=== PATIENT | male | born 1990 | race Caucasian/White ===

== ENCOUNTER 2018-09-28 13:47 | Emergency (ER) | payer OTHER, SELFPAY ==
--- NOTE | 2018-09-28 13:53 | NUR.NOTE ---
Nursing Note: 40 min ago pt cut his thumb on a table saw distal tip 5 cm long minimal bleeding appears to be deep
[2018-09-28 13:55] VITALS: BP 134/66; PULSE 98; RESP 19; TEMP 37; O2SAT 100
--- NOTE | 2018-09-28 15:00 | DI.RAD_ITS ---
SYMPTOMS/DIAGNOSIS: TABLESAW INJURY LEFT THUMB: Three views. No acute fracture or dislocation is seen. There is soft tissue defect at the tip of the thumb consistent with laceration. No radiopaque foreign bodies are present. IMPRESSION: Soft tissue laceration. No radiopaque foreign body or fracture.
--- NOTE | 2018-09-28 15:51 | W.ED.GENAD ---
Discharge Plan Disposition Patient Disposition: HOME Condition: Good Discharge Details Chief Complaint: Laceration Clinical Impression: Laceration of left thumb Primary Care Provider: None,None ED Provider: Lionel Queen Home Meds and New Rx's Prescriptions: New cephalexin [Keflex] 500 mg capsule 500 mg PO QID 7 Days Qty: 28 RF: 0 Discharge Instructions Instructions: Care For Your Stitches (ED), Laceration (ED) Additional Instructions: Your x-ray shows no evidence of fracture, because of the nature of your wound and you cut it we will start you on antibiotics as a precaution. Please take Tylenol and Motrin as needed for pain. please come back in the next 7 to 10 days for reassessment and removal of your sutures. Please leave the dressing on for 24 hours, then you may remove and begin cleaning the wound at least twice a day with soap and water. Continue to apply antibiotic ointment. Do not directly soak the area. Watch for any signs of infection and return if any increasing redness, swelling, pain, drainage. If you notice continued numbness or tingling please return immediately and we will place a referral for orthopedics. Discharge Data Discharge Date/Time-TO BE ENTERED AT DEPARTURE: 09/28/18 16:19 Medical Decision Making This is a pleasant 27-year-old male who is [id number] who presents today for laceration to the distal tip of his left dominant thumb getting it caught in a table saw. Laceration extends from the edge of the nail to the center of the pulp on the volar aspect of the thumb. Two-point discrimination is notably deficient, however sensation is intact. He is able to flex the distal aspect of the thumb but this is limited to pain. X-ray reveals no evidence of significant bony involvement. The area was washed out and scrubbed vigorously with normal saline and chlorhexidine. Following this 7 simple interrupted sutures with 5-0 Vicryl were placed in the left thumb for good wound edge reapproximation. Patient tolerated this well. Repeat exam demonstrates good ability to flex the thumb. However due to the depth of the injury I am concerned for potential mild nerve and ligamentous damage. Additionally because of the dirty nature of the wound initially as well as the close proximity to the bone even in spite of no evidence of radiographic fracture I will start the patient on antibiotics as a precaution. Will be started on Keflex. We discussed red flags which to return, the importance of close follow-up with his PCP for reassessment, as well as return here for removal of the sutures. If The patient continues to demonstrate decreased two-point discrimination on the tip of his thumb, as well as any decrease in strength, I do feel that he will need orthopedic follow-up. I have extensively reviewed the treatment plan and discharge instructions with the patient. I have addressed all patient concerns at this time. The patient was made aware of what symptoms to monitor for that would warrant a return to the emergency department. Discussed the plan with the patient, they demonstrate verbal understanding and agreement with our assessment and plan at this time. LEFT THUMB: Three views. No acute fracture or dislocation is seen. There is soft tissue defect at the tip of the thumb consistent with laceration. No radiopaque foreign bodies are present. IMPRESSION: Soft tissue laceration. No radiopaque foreign body or fracture. Ordered By: Lionel Queen DO HPI General Date/Time Provider Initiated Documentation: 09/28/18 14:13. HPI Narrative: This is a pleasant 27-year-old male who is [id number] who presents today for laceration of his left thumb. Patient was working with a table saw when he cut the tip of his left thumb. He came to the ER immediately for reassessment. Tetanus is been updated in the last 2 years. He certainly denies pain at the site of laceration, he admits to minimal tingling at the tip of his finger. He denies any other complaints at this time. He denies any other site of injury. He denies any IV or illicit drug use, pertinent family history, recent surgical history. Related Data Home Medications Medication Instructions Recorded Confirmed cephalexin [Keflex] 500 mg PO QID 7 Days #28 cap 09/28/18 Previous Rx's Medication Instructions Recorded cephalexin [Keflex] 500 mg PO QID 7 Days #28 cap 09/28/18 Allergies Allergy/AdvReac Type Severity Reaction Status Date / Time No Known Allergies Allergy Unverified 09/28/18 13:56 General Stated Complaint: Laceration ANGELITO: 3 Review of Systems Review of Systems All systems reviewed & are unremarkable except as noted in HPI and below PFSH Social History Smoking/Tobacco Use Status: Current every day Alcohol Intake: current Alcohol Intake frequency: a few times a week Drug use: Daily Substance use type: marijuana Do you feel safe at home: Yes Do you feel safe in your relationship?: Yes Exam Narrative Exam Narrative: 1.Const: Well-nourished, Well-developed, appearing stated age 2.Eyes: PERRL, no conjunctival injection, and symmetrical lids. 3.ENT: Atraumatic external nose and ears. Moist MM. Neck: Symmetric, trachea midline, No thyromegaly. 4.CVS: +S1/S2, No murmurs or gallops. Peripheral pulses 2+ and equal in all extremities. Brisk capillary refill in all extremities. 5.RESP: Unlabored respiratory effort. Clear to auscultation bilaterally. No wheezes rales or rhonchi 6.GI: Soft, Nontender/Nondistended, No hepatosplenomegaly. No guarding or rebound. 7.MSK: Normocephalic/Atraumatic, Extremities w/o deformity or ttp No cyanosis or clubbing, Normal movement of all extremities 8.Skin: Warm, Dry. Notable 1.5 to 2 cm laceration on the distal aspect of his thumb on the pulp side, extending from the tip of the medial aspect of the nail towards the center volar aspect of the thumb. Patient is able to flex the tip of his thumb, however he has mild pain with doing so which slightly limits the examination. Sensation is intact distal to the laceration however I am unable to start any two-point discrimination secondary to a combination of pain and potential injury to the nerve. No evidence of bony involvement. No clear evidence of tendon involvement. Patient demonstrates normal medial and lateral movement of the thumb, extension of the thumb, brisk capillary refill distal to the injury site. No other evidence of bony tenderness. 9.Neuro: vendor management associate II-XII grossly intact. Sensation grossly intact, no focal neurologic deficits. 10.Psych: (AAO) x3. Appropriate mood and affect Course Vital Signs Temperature 37.0 C 09/28/18 13:55 Pulse 98 H 09/28/18 13:55 Respiratory Rate 09/28/18 13:55 Blood Pressure 134/66 09/28/18 13:55 Pulse Oximetry 100 09/28/18 13:55 Temperature 37.0 C 09/28/18 13:55 Temperature Source Tympanic 09/28/18 13:55 Pulse 98 H 09/28/18 13:55 Respiratory Rate 09/28/18 13:55 Respiratory Effort 09/28/18 13:57 Blood Pressure 134/66 09/28/18 13:55 Blood Pressure Position Sitting 09/28/18 13:55 Pulse Oximetry 100 09/28/18 13:55 Oxygen Delivery Method Room Air 09/28/18 13:55 Oxygen Flow Rate 0 09/28/18 13:55 Pain Level 10 09/28/18 13:55 Procedures Laceration Laceration 1: Site: hand Side (If applicable): left Size (cm): 2 Depth: simple, single layer Local Anesthetic: Lidocaine 2% and Bupivicaine 0.5% Pre-repair: wound explored, irrigated extensively and deep structures intact Skin layer closed with: nylon Size (cm): 4-0 Number of sutures: 7 Technique: simple, interrupted
[2018-09-28 16:16] VITALS: BP 134/66; PULSE 98; RESP 19; TEMP 37; O2SAT 100
== END 2018-09-28 16:19 | disposition home or self-care (01) ==
PROVIDERS: Emergency Provider Student in an Organized Health Care Education/Training Program
DX: S61.012A Laceration without foreign body of left thumb without damage to nail, initial encounter (principal); W31.2XXA Contact with powered woodworking and forming machines, initial encounter
CPT/HCPCS: 12001; 99283; 73140

== ENCOUNTER 2020-07-18 11:37 | Emergency (ER) | payer MEDICAID, SELFPAY ==
[2020-07-18 11:43] VITALS: BP 143/76; PULSE 78; RESP 16; TEMP 36.1; O2SAT 95
--- NOTE | 2020-07-18 11:48 | W.ED.GENAD ---
Discharge Plan Disposition Patient Disposition: STILL A PATIENT Condition: Serious Discharge Details Chief Complaint: PsychEval Clinical Impression: Depression with suicidal ideation Primary Care Provider: None,None ED Provider: Rodrigo Lemon Home Meds and New Rx's Prescriptions: No Action No Known Home Meds RF: 0 Medical Decision Making This is a 29-year-old gentleman who reports feeling increased depression, thoughts of harming himself without a specific plan, and find himself more aggressive toward other people but not necessarily homicidal. He reports multiple factors including work, financial situations, recent DUI, difficulty with relationships, etc. He has not done anything to harm himself today. He denies recent illness or trauma, has no acute medical concerns or complaints at this time. Will obtain laboratory values for medical screening, and then obtain a mental health evaluation. In the meantime will order a CPSO and safety plan. Patient agreeable with this plan and has no additional questions or concerns Laboratory values resulted and there are no obvious emergent medical conditions that would inhibit a mental health evaluation. Mental health contacted. Mental health evaluation performed by John, please see her note. The patient will be a voluntary placement for inpatient psychiatric admission. I contacted our warehouse logistics manager regarding bed status, at this time given the limited space, a pediatric admission earlier in the day, it is requested that we board the patient here in the ER and do not admit as an inpatient to our facility. Medical Records Medical records reviewed: Yes I reviewed the patient's medical records. Lab Data Lab results reviewed: Yes I reviewed the patient's lab results. Labs: Laboratory Tests Range/Units 07/18/20 07/18/20 07/18/20 12:12 12:12 12:12 WBC (4.4-10.8) 10^3/uL 5.50 RBC (4.36-5.78) 10^6/uL 4.83 Hgb (13.5-17.5) g/dL 15.7 Hct (40.0-50.0) % 44.0 MCV (80-95) fL 91.1 MCH (27.0-33.0) pg 32.5 MCHC (32.0-36.0) % 35.7 RDW (11.8-14.1) % 11.7 L Plt Count (130-400) 10^3/uL 326 MPV (8.0-11.0) fL 9.4 Immature Gran % 0.4 Neutrophils % 56.7 Lymphocytes % 28.7 Monocytes % 6.0 Eosinophils % 7.3 Basophils % 0.9 Nucleated RBC % % 0 Absolute Neutrophils (1.2-6.7) 10^3/uL 3.12 Absolute Lymphocytes (1.2-3.4) 10^3/uL 1.58 Absolute Monocytes (0.1-0.8) 10^3/uL 0.33 Absolute Eosinophils (0.0-0.7) 10^3/uL 0.40 Absolute Basophils (0.0-0.2) 10^3/uL 0.05 Sodium (136-145) mmol/L 141 Potassium (3.5-5.1) mmol/L 3.9 Chloride (98-107) mmol/L 104 Carbon Dioxide (21.0-32.0) mmol/L 26.0 Anion Gap (3-11) mmol/L 11.0 BUN (7-18) mg/dL 5 L Creatinine (0.70-1.30) mg/dL 1.0 Estimated GFR/1.73 m2 (mL/min/1.73m2) >= 60.00 Glucose (74-106) mg/dL 84 Calcium (8.5-10.1) mg/dL 8.9 Total Bilirubin (0.2-1.0) mg/dL 0.6 AST (15-37) U/L 33 ALT (16-63) U/L 44 Alkaline Phosphatase (46-116) U/L 75 Total Protein (6.4-8.2) g/dL 7.9 Albumin (3.4-5.0) g/dL 4.2 TSH (0.36-3.74) uIU/mL 0.86 Urine Color (Yellow) Urine Clarity (Clear) Urine pH (5-8) Ur Specific [place] (1.005-1.025) Urine Protein (Negative) mg/dL Urine Ketones (Negative) mg/dL Urine Blood (Negative) Urine Nitrite (Negative) Urine Bilirubin (Negative) Urine Urobilinogen (Up TO 0.2) EU/dL Ur Leukocyte Esterase (Negative) Urine RBC (0-2) HPF Urine WBC (0-5) HPF Ur Epithelial Cells (Negative) HPF Urine Crystals (Negative) HPF Urine Bacteria (Negative) HPF Urine Casts (Negative) LPF Urine Mucus (Negative) Ur Culture Indicated? Urine Glucose (Negative) mg/dL Salicylates (<2.8) mg/dL 4.0 Urine Opiates Screen (Negative) Urine Methadone Screen (Negative) Acetaminophen (10-30) ug/mL < 2 Ur Barbiturates Screen (Negative) Ur Tricyclics Screen (Negative) Ur Amphetamines Screen (Negative) U Benzodiazepines Scrn (Negative) Urine Cocaine Screen (Negative) Ur THC Screen (Negative) Ethyl Alcohol (<3) mg/dL 9.0 COVID-19 Source Range/Units 07/18/20 07/18/20 07/18/20 12:12 12:12 14:40 WBC (4.4-10.8) 10^3/uL RBC (4.36-5.78) 10^6/uL Hgb (13.5-17.5) g/dL Hct (40.0-50.0) % MCV (80-95) fL MCH (27.0-33.0) pg MCHC (32.0-36.0) % RDW (11.8-14.1) % Plt Count (130-400) 10^3/uL MPV (8.0-11.0) fL Immature Gran % Neutrophils % Lymphocytes % Monocytes % Eosinophils % Basophils % Nucleated RBC % % Absolute Neutrophils (1.2-6.7) 10^3/uL Absolute Lymphocytes (1.2-3.4) 10^3/uL Absolute Monocytes (0.1-0.8) 10^3/uL Absolute Eosinophils (0.0-0.7) 10^3/uL Absolute Basophils (0.0-0.2) 10^3/uL Sodium (136-145) mmol/L Potassium (3.5-5.1) mmol/L Chloride (98-107) mmol/L Carbon Dioxide (21.0-32.0) mmol/L Anion Gap (3-11) mmol/L BUN (7-18) mg/dL Creatinine (0.70-1.30) mg/dL Estimated GFR/1.73 m2 (mL/min/1.73m2) Glucose (74-106) mg/dL Calcium (8.5-10.1) mg/dL Total Bilirubin (0.2-1.0) mg/dL AST (15-37) U/L ALT (16-63) U/L Alkaline Phosphatase (46-116) U/L Total Protein (6.4-8.2) g/dL Albumin (3.4-5.0) g/dL TSH (0.36-3.74) uIU/mL Urine Color (Yellow) Yellow Urine Clarity (Clear) Clear Urine pH (5-8) 7.5 Ur Specific [place] (1.005-1.025) 1.020 Urine Protein (Negative) mg/dL Trace H Urine Ketones (Negative) mg/dL Negative Urine Blood (Negative) Negative Urine Nitrite (Negative) Negative Urine Bilirubin (Negative) Negative Urine Urobilinogen (Up TO 0.2) EU/dL 0.2 Ur Leukocyte Esterase (Negative) Negative Urine RBC (0-2) HPF 0-2 Urine WBC (0-5) HPF 0-2 Ur Epithelial Cells (Negative) HPF Rare Urine Crystals (Negative) HPF Negative Urine Bacteria (Negative) HPF Rare Urine Casts (Negative) LPF Negative Urine Mucus (Negative) Moderate Ur Culture Indicated? No Urine Glucose (Negative) mg/dL Negative Salicylates (<2.8) mg/dL Urine Opiates Screen (Negative) Negative Urine Methadone Screen (Negative) Negative Acetaminophen (10-30) ug/mL Ur Barbiturates Screen (Negative) Negative Ur Tricyclics Screen (Negative) Negative Ur Amphetamines Screen (Negative) Negative U Benzodiazepines Scrn (Negative) Negative Urine Cocaine Screen (Negative) Positive A Ur THC Screen (Negative) Positive A Ethyl Alcohol (<3) mg/dL COVID-19 Source Nasal/nares HPI General Mode of arrival: ambulatory. Date/Time Provider Initiated Documentation: 07/18/20 11:48. Limitations to Documentation: no limitations. Information obtained by: patient. HPI Narrative: This is a 29-year-old gentleman who presents to the ER for evaluation regarding depression, thoughts of harming himself. He does not have a specific plan. Patient reports that he is having difficulty with relationships at home, difficulty at work, financial problems, and a recent second DUI. He denies any medical concerns or complaints at this time. He reports daily alcohol use although has never had any withdrawal symptoms, daily marijuana use, and smokes cigarettes daily. Patient denies any homicidal ideation but states that he feels aggressive and wants to fight people in general. He denies recent illness or trauma. Denies headache, fever, neck pain, chest pain, shortness of breath abdominal pain, nausea, vomiting, back pain, numbness, tingling, weakness, change in bowel or bladder function. Related Data Home Medications Medication Instructions Recorded Confirmed Unknown [No Known Home Meds] 07/18/20 07/18/20 Allergies Allergy/AdvReac Type Severity Reaction Status Date / Time No Known Allergies Allergy Unverified 07/18/20 11:48 General Stated Complaint: PsychEval ANGELITO: 3 Review of Systems Constitutional Constitutional: Denies fatigue, Denies fever(s), Denies headache(s) and Denies weakness Eyes Eyes: Denies change in vision ENT Ears, Nose, Mouth, and Throat: Denies headache(s) and Denies neck mass Cardiovascular Cardiovascular: Denies chest pain and Denies dyspnea Respiratory Respiratory: Denies cough and Denies dyspnea Gastrointestinal Gastrointestinal: Denies abdominal pain, Denies nausea and Denies vomiting Musculoskeletal Musculoskeletal: Denies back pain Integumentary/Breasts Skin/Breast: Denies rash Neurologic Neurologic: Denies headache(s) and Denies weakness Psychiatric Psychiatric: Reports depression, Reports homicidal ideation and Reports suicidal ideation Endocrine Endocrine: Denies fatigue [facility] Social History Smoking/Tobacco Use Status: Current every day Tobacco Type: cigarettes Smoking risk assessment performed?: Yes Alcohol Intake: current Alcohol Intake frequency: 3 or more drinks per day Drug use: Daily Substance use type: marijuana Details: 6-12 twisted teas/day Do you feel safe at home: Yes Do you feel safe in your relationship?: Yes Exam Const General: cooperative, healthy appearing, comfortable and no acute distress Orientation: alert, awake and oriented x3 HENMT Head: normal to inspection, normocephalic and atraumatic Face and sinus: normal facial exam Mouth: moist mucous membranes Eyes General: appearance normal, both eyes and all related structures Alignment and Position: alignment normal Periorbital: periorbital findings normal Eyelids: eyelids normal Conjunctivae: conjunctivae normal Sclera: sclerae normal Cornea: corneas normal Pupils: PERRL EOM: EOM intact bilaterally Direct ophthalmoscopy: normal light reflex Neck Neck: normal visual inspection, full ROM, trachea midline and supple Resp Effort & Inspection: normal respiratory effort and able to speak in complete sentences Auscultation: clear to auscultation bilaterally Cardio Rate: regular rate Rhythm: regular rhythm GI Palpation: soft and nontender Back/Spine/Pelvis Back: No back tenderness Skin General skin exam: no rashes or lesions noted Neuro General: patient alert, patient awake, patient oriented x3, moves all extremities and no focal motor deficits Cognition: normal cognition Speech: speech normal Gait: normal gait Motor: muscle tone normal throughout Sensory Exam: no sensory deficits noted Extrem General: normal to inspection, full ROM and capillary refill normal Psych Appearance: grossly normal Mental Status: mental status grossly normal Speech and Movement: speech and movement normal Mood: dysthymic mood Affect: sad Attitude: cooperative Thought Process: normal Thought Content: suicidality Insight: fair Judgment: fair Course Vital Signs Vital signs: Vital Signs Temperature 36.1 C L 07/18/20 11:43 Pulse 78 07/18/20 11:43 Respiratory Rate 16 07/18/20 11:43 Blood Pressure 143/76 H 07/18/20 11:43 Pulse Oximetry 95 07/18/20 11:43 Temperature 36.1 C L 07/18/20 11:43 Temperature Source Skin 07/18/20 11:43 Pulse 78 07/18/20 11:43 Respiratory Rate 16 07/18/20 11:43 Respiratory Effort Non-Labored 07/18/20 11:43 Blood Pressure 143/76 H 07/18/20 11:43 Blood Pressure Position Sitting 07/18/20 11:43 Pulse Oximetry 95 07/18/20 11:43 Oxygen Delivery Method Room Air 07/18/20 11:43 Oxygen Flow Rate 0 07/18/20 11:43 Pain Level 2 07/18/20 11:43 Comment 07/18/20 11:43
[2020-07-18 12:30] LABS: Abs Immature Grans 0.02 10^3/uL (0.0-0.06); Absolute Basophil Count 0.05 10^3/uL (0.0-0.2); Absolute Lymphocyte Count 1.58 10^3/uL (1.2-3.4); Absolute Monocyte Count 0.33 10^3/uL (0.1-0.8); Absolute Neutrophil Count 3.12 10^3/uL (1.2-6.7); Basophils % 0.9; Eosinophils % 7.3; HGB 15.7 g/dL (13.5-17.5); Immature Grans % 0.4; Lymphocytes % 28.7; MCH 32.5 pg (27.0-33.0); MCHC 35.7 % (32.0-36.0); MCV 91.1 fL (80-95); MPV 9.4 fL (8.0-11.0); Neutrophils % 56.7; Nucleated RBC 0 %; Platelet Count 326 10^3/uL (130-400); RBC 4.83 10^6/uL (4.36-5.78); RDW 11.7 % (11.8-14.1); RDW-SD 38.7 fL
[2020-07-18 12:39] LABS: Bilirubin Negative (Negative); Blood Negative (Negative); Clarity Clear (Clear); Glucose Negative (Negative); Ketones Negative (Negative); Leukocyte Esterase Negative (Negative); Nitrite Negative (Negative); Urobilinogen 0.2 EU/dL (Up TO 0.2); pH 7.5 (5-8)
[2020-07-18 12:45] LABS: *AMPHETAMINES SCREEN URINE Negative (Negative); *BARBITURATES SCREEN URINE Negative (Negative); *BENZODIAZEPINES SCREEN URINE Negative (Negative); Cannabinoids THC Positive (Negative); Cocaine Screen,Urine Positive (Negative); METHADONE URINE SCREEN Negative (Negative); OPIATES URINE SCREEN Negative (Negative)
[2020-07-18 12:46] LABS: Tricyclic Antidepressants Negative (Negative)
[2020-07-18 12:48] LABS: Acetaminophen < 2 ug/mL (10-30); WBC 0-2 HPF (0-5)
[2020-07-18 12:49] LABS: Bacteria Rare HPF (Negative); C & S Indicated? No; Casts Negative LPF (Negative); Crystals Negative HPF (Negative); Epithelial Cells Rare HPF (Negative); Mucus Moderate (Negative); RBC 0-2 HPF (0-2)
[2020-07-18 12:50] LABS: ALT 44 U/L (16-63); AST 33 U/L (15-37); Albumin 4.2 g/dL (3.4-5.0); Alkaline Phosphatase 75 U/L (46-116); BUN 5 mg/dL (7-18); Bilirubin, Total 0.6 mg/dL (0.2-1.0); Calcium 8.9 mg/dL (8.5-10.1); Chloride 104 mmol/L (98-107); Glucose 84 mg/dL (74-106); Potassium 3.9 mmol/L (3.5-5.1); Sodium 141 mmol/L (136-145); TSH 0.86 uIU/mL (0.36-3.74); Total Protein 7.9 g/dL (6.4-8.2)
[2020-07-18 14:49] LABS: Source Nasal/Nares
--- NOTE | 2020-07-18 16:03 | CMSP_ITS ---
- If Service Date Differs Date of service: 07/18/20 Time of Service: 16:03 Care Management Safety Plan Status: Voluntary Chief Complaint: Marcos presents in the ED for suicidal and homicidal ideation. He reportedly previously attempted suicide by hanging but denies having a plan at this time. Marcos reports a number of stressors and worsening depression. He is evaluated by John, [facility] crisis screener, via zoom and found to meet criteria for a voluntary hospitalization. Referrals are sent to [facility], [facility] [place], [facility], and [facility] [place] for review. There are no beds available at this time, so Marcos will remain at [facility] while [facility] continues to seek a placement for him. VOLUNTARY FOR INPATIENT PSYCHIATRIC STABILIZATION. Patient is appropriate in all interactions since arriving at [facility]; Pt has demonstrated appropriate coping and communication skills, has articulated his or her needs and concerns and is fully engaged during staff interactions. Safety plan has been established with patient, and care team, to adhere to patient goals, identify restrictions based on behavioral status, address nutrition, and determine allowed personal belongings, tools for hygiene and personal care. Determine level of activity including ambulation, level of supervision, visitors, and determine privileges based on behaviors and level of engagement by pt. SAFETY PLAN: 1. Will remain on suicide precautions. In Paper Clothes 2. Will remain in room under direct supervision of one-on-one staff at all times provided by CPSO, FEATHER DRYING MACHINE OPERATOR, PROFESSIONAL BUILDER seed production field supervisor. 3. May have paper cups, plates, finger foods as well as a cardboard spoon with which to eat meals. 4. Follow [facility] Management of the Admitted Behavioral Health Patient policy. 5. Comfort bath system only. 6. No personal belongings 7. Visitors-No visitors at this time 8. Activities: crayons, coloring books, soft cart items, and other activities at RN discretion. 9. Bathroom privileges with escort while in the ED. May use bathroom available in room if moved to Med/Surg. 10. Phone: Phone use at RN discretion. 11. Due to VOLUNTARY status, if patient wishes to leave [facility], staff will contact [facility] Crisis Screener ([phone]) and On-Call Reclamation Furnace Operator ([phone]) as soon as possible. In the event of elopement, notify [facility] Police ([phone]). Patient is currently voluntarily at [facility] and seeking inpatient admission when a bed becomes available. [facility] Frontline Reed Fixer will continue seeking placement. Please contact the Special Tester Reclamation Furnace Operator ([phone]) and [facility] Cri sis Worker ([phone]) for any needed changes in the Safety Plan. Safety plan has been provided to interdepartmental care team.
--- NOTE | 2020-07-18 16:03 | PDOC.CMSAFED ---
- If Service Date Differs Date of service: 07/18/20 Time of Service: 16:03 Care Management Safety Plan Status: Voluntary Chief Complaint: Marcos presents in the ED for suicidal and homicidal ideation. He reportedly previously attempted suicide by hanging but denies having a plan at this time. Marcos reports a number of stressors and worsening depression. He is evaluated by John, [facility] crisis screener, via zoom and found to meet criteria for a voluntary hospitalization. Referrals are sent to [facility], [facility], [facility], and [facility] for review. There are no beds available at this time, so Marcos will remain at [facility] while [facility] continues to seek a placement for him. VOLUNTARY FOR INPATIENT PSYCHIATRIC STABILIZATION. Patient is appropriate in all interactions since arriving at [facility]; Pt has demonstrated appropriate coping and communication skills, has articulated his or her needs and concerns and is fully engaged during staff interactions. Safety plan has been established with patient, and care team, to adhere to patient goals, identify restrictions based on behavioral status, address nutrition, and determine allowed personal belongings, tools for hygiene and personal care. Determine level of activity including ambulation, level of supervision, visitors, and determine privileges based on behaviors and level of engagement by pt. SAFETY PLAN: 1. Will remain on suicide precautions. In Paper Clothes 2. Will remain in room under direct supervision of one-on-one staff at all times provided by CPSO, CAPACITOR TESTER, DAIRY TESTER restaurant area director. 3. May have paper cups, plates, finger foods as well as a cardboard spoon with which to eat meals. 4. Follow [facility] Management of the Admitted Behavioral Health Patient policy. 5. Comfort bath system only. 6. No personal belongings 7. Visitors-No visitors at this time 8. Activities: crayons, coloring books, soft cart items, and other activities at RN discretion. 9. Bathroom privileges with escort while in the ED. May use bathroom available in room if moved to Med/Surg. 10. Phone: Phone use at RN discretion. 11. Due to VOLUNTARY status, if patient wishes to leave [facility], staff will contact [facility] Crisis Screener ([phone]) and On-Call Mold Construction Supervisor ([phone]) as soon as possible. In the event of elopement, notify [facility] Police ([phone]). Patient is currently voluntarily at [facility] and seeking inpatient admission when a bed becomes available. [facility] Frontline Developmental Education Instructor will continue seeking placement. Please contact the Art Objects Repairer Mold Construction Supervisor ([phone]) and [facility] Developmental Education Instructor ([phone]) for any needed changes in the Safety Plan. Safety plan has been provided to interdepartmental care team.
--- NOTE | 2020-07-18 16:26 | PDOC.MHCN_ITS ---
Date of service: 07/18/20 Time of Service: 13:45 Mental Health Crisis Note Presenting Issue How did you arrive at the ED and why did you come: Client stated he walked to the ED. Client reported feeling more depressed than usual. Precipitating Factors Client endorsed SI as well as HI. Client reported having thought of harming others but not towards any one in particular. Disposition BEHAVIOR: Client presented as cooperative, guarded and impulsive. Client also presented as fatigued. EYE CONTACT: Client maintained appropriate eye contact. MOOD: Client presented wit depressed mood. AFFECT: Client presented with restricted affect APPETITE: Client reported having intervals of poor appetite which leads to him starving himself as a way to self-harm. Client also reported times where overeats due to feeling depressed, stressed or bored. SLEEP(trouble falling/staying asleep: Client reported difficulty falling and staying asleep. Plan Client is has agreed to remain on voluntary status. Client will await placement at [facility] for in-patient psychiatric treatment. Referrals have been sent to [facility], [facility], [facility] and and they are pending review as well as bed availability. Signature Clinician's Name/Title: Adry Mcghee / Emergency Services Clinician.
[2020-07-18] MEDS: LORazepam 1 MG TAB PO (19:51)
[2020-07-18 20:29] LABS: COVID-19 PCR Negative (Negative)
[2020-07-19 05:27] VITALS: TEMP 37.1
[2020-07-19 10:08] VITALS: BP 142/73; PULSE 48; RESP 16; TEMP 36.8; O2SAT 94
--- NOTE | 2020-07-19 10:22 | NUR.NOTE ---
Nursing Note: Left a message at [facility] for Marce, who called earlier, that the patient is going to be transferred to [facility]. Donna Conde
--- NOTE | 2020-07-19 12:04 | PDOC.ERCMPRO ---
- If Service Date Differs Date of service: 07/19/20 Time of Service: 12:04 Care Management Progress Note S/O: Marcos has been calm and cooperative since his arrival at [facility]. Today, he is laying on the bed when CM comes to meet with him. He easily engages in conversation. Affect is flat and mood depressed. Breonna from [facility] spoke with Marcos on the telephone this morning to assist in reinstating his Medicaid. Marcos is aware he is being transferred to [facility] this afternoon around 1:00 pm. He states he has been at the [facility] in the past and has no questions or concerns, as he knows what to expect. A: Marcos is a 29 year old male who presents to the ED on 07/18/2020 for suicidal and homicidal ideation. P: [facility] has accepted Marcos for a voluntary placement. [facility] are providing transport to the [facility].
--- NOTE | 2020-07-19 14:04 | NUR.NOTE ---
patient picked up for transport by . told patient that he may change into his own clothes. rn aware. Nursing Note:
== END 2020-07-19 13:59 | disposition short-term general hospital (02) ==
PROVIDERS: Physician Assistant; Emergency Provider Emergency Medicine
DX: F41.8 Other specified anxiety disorders (principal); R45.851 Suicidal ideations; Z03.818 Encounter for observation for suspected exposure to other biological agents ruled out
CPT/HCPCS: 36415; 80053; 80307; 87635; 99285; 80320; 80329; 81003; 81015; 84443; 85025; 99283

== ENCOUNTER 2020-08-21 17:06 | Emergency (ER) | payer MEDICAID, SELFPAY ==
[2020-08-21 17:22] VITALS: BP 139/82; PULSE 98; RESP 15; TEMP 36.9; O2SAT 96
--- NOTE | 2020-08-21 17:27 | W.ED.GENAD ---
Discharge Plan Disposition Patient Disposition: HOME Condition: Stable Discharge Details Clinical Impression: Depression with suicidal ideation Primary Care Provider: None,None ED Provider: Cheli Urena Home Meds and New Rx's Prescriptions: Continued trazodone 50 mg tablet 50 mg PO HS RF: 0 olanzapine 10 mg tablet 10 mg PO HS RF: 0 fluoxetine 20 mg capsule 20 mg PO DAILY RF: 0 Discharge Instructions Instructions: Depression (ED), Help Prevent Suicide (ED) Additional Instructions: Safety plan has been set up. Plan is for you to stay with your mother while you are still having increased depression. Mom will be in charge of her medications and ensure you get the as they are prescribed. No firearms in the house. You will need close follow-up with primary care, please call tomorrow morning to schedule appointment tomorrow. Please keep upcoming appointment with diffuse counselor. Please continue to try to abstain from alcohol. Mental health provider will be in touch with you at least daily and continue to have frequent check ins. If you develop thoughts of self-harm, suicidal ideation or other new/worsening symptoms please seek care urgently once again. May call mental health at anytime [phone]. Please also stay in close contact with your case management social worker. Referrals: Taylor Crowley [ NON-[facility] STAFF PHYSICIAN] - Discharge Data Discharge Date/Time-TO BE ENTERED AT DEPARTURE: 08/21/20 20:12 Medical Decision Making Patient pleasant 29-year-old male with history of depression presenting today with chief complaint of suicidal ideations. He reports that his depression has been increasing recently. He was discharged from [facility] 3 weeks ago. Have been clean for the first 2 days but did begin drinking alcohol again. He reports that he has a multitude of social stressors including his current living situation, being evicted from his home. He finds himself being very short with others and has begun drinking to try and cope with this. Patient reports that 2 days ago he took extra Zyprexa in an effort to go to sleep. He felt that this is a better option than arguing with the levels in his life. He is adamant that this is not a suicide attempt but rather an attempt to be able to get some sleep as he has had difficulty doing so. Patient has not yet established with a local counselor or primary care. However, he does report that he is in touch with a acid recovery operator and has an appointment with them coming up. Endorses marijuana use. States that he had 1 beer prior to arrival. On exam, patient appears anxious and sad. I do not see any evidence of recent cutting or self-inflicted harm. Patient is clinically sober and appropriate. Plan to consult with mental health. Patient does have a sitter and has changed to blue scrubs. Patient was evaluated by mental health. He continues to reiterate concern for his overall mental health but want to get help. She reports to her as well that he does not want to commit suicide but rather, wants to get help as he is concerned about his increasing depression. Mental health provider and the patient discussed disposition options. They feel that at this time, the best plan is for him to be discharged home with his mother. He will stay with his mother while he continues his treatment. He does have upcoming appointment with a substance abuse counselor. Mental health provider plans to talk with the patient at least once a day. He will also follow-up with primary care tomorrow, mom will help arrange for close follow-up. Mom will be in charge of all of his medications and will giving these accordingly. They will ensure no firearms in the house. Strict return precautions were discussed. Patient agrees to safety plan. He does have forward thinking and seems very invested in this plan. All of their questions and concerns were addressed and patient and his mother in agreement with this plan. Contact #4 mental health was given to patient he is aware that he may contact them at any time. HPI General Mode of arrival: ambulatory. Date/Time Provider Initiated Documentation: 08/21/20 17:27. Limitations to Documentation: no limitations. Information obtained by: patient and RN notes reviewed. History of Present Illness 29 year old M presents to the emergency department with the chief complaint of suicidal ideation, described as severe and similar to prior episodes, Patient started experiencing this day(s) and it has been constant. No relieving factors improve symptom(s), No exacerbating factors reported . Patient notes no other symptoms.. Patient did receive the following treatments prior to arrival, none Related Data Home Medications Medication Instructions Recorded Confirmed fluoxetine 20 mg PO DAILY 08/21/20 08/21/20 olanzapine 10 mg PO HS 08/21/20 08/21/20 trazodone 50 mg PO HS 08/21/20 08/21/20 Allergies Allergy/AdvReac Type Severity Reaction Status Date / Time No Known Allergies Allergy Unverified 08/21/20 17:32 General ANGELITO: 3 Review of Systems Constitutional Constitutional: Reports as per HPI, Denies chills, Denies fatigue, Denies fever(s), Denies headache(s) and Denies weakness ENT Ears, Nose, Mouth, and Throat: Denies headache(s) Cardiovascular Cardiovascular: Reports as per HPI, Denies chest pain, Denies lightheadedness, Denies dyspnea and Denies dyspnea on exertion Respiratory Respiratory: Reports as per HPI, Denies cough, Denies dyspnea and Denies dyspnea on exertion Genitourinary Genitourinary: Denies system reviewed and no additional complaints, except as documented (denies any change in urinary habits) Musculoskeletal Musculoskeletal: Denies abnormal gait Integumentary/Breasts Skin/Breast: Reports as per HPI and Denies rash Neurologic Neurologic: Denies abnormal movements, Denies abnormal speech, Denies abnormal gait, Denies headache(s), Denies paresthesias and Denies weakness Psychiatric Psychiatric: Reports as per HPI, Reports abnormal sleep pattern, Reports depression, Reports hopelessness, Reports mood swings, Denies visual hallucinations, Denies homicidal ideation and Reports suicidal ideation Endocrine Endocrine: Denies fatigue [facility] Social History Smoking/Tobacco Use Status: Current every day Tobacco Type: cigarettes Smoking risk assessment performed?: Yes Alcohol Intake: current Alcohol Intake frequency: 3 or more drinks per day Alcohol type: other Drug use: Daily Substance use type: marijuana Details: 6-12 twisted teas/day Do you feel safe at home: No Do you feel safe in your relationship?: No Exam Const General: cooperative, healthy appearing, comfortable, no acute distress, well developed, well groomed and anxious (sad and anxious, crying) Nutritional Appearance: average body habitus and well nourished Orientation: alert and awake Eyes General: appearance normal, both eyes and all related structures Resp Effort & Inspection: normal respiratory effort, able to speak in complete sentences and no respiratory distress Auscultation: clear to auscultation bilaterally, no rales, no rhonchi and no wheezes Cardio Rate: regular rate Rhythm: regular rhythm Heart Sounds: S1 normal and S2 normal Skin General skin exam: no rashes or lesions noted Trauma: no lacerations or abrasions Neuro General: patient alert and patient awake Cognition: normal cognition Speech: speech normal Gait: normal gait Psych Appearance: grossly normal and well kempt Mental Status: mental status grossly normal Speech and Movement: speech and movement normal Mood: anxious mood Affect: sad Attitude: cooperative Thought Process: normal Thought Content: suicidality Insight: limited Judgment: limited
[2020-08-21 17:57] LABS: Abs Immature Grans 0.04 10^3/uL (0.0-0.06); Absolute Eosinophil Count 0.59 10^3/uL (0.0-0.7); Absolute Lymphocyte Count 2.52 10^3/uL (1.2-3.4); Absolute Monocyte Count 0.68 10^3/uL (0.1-0.8); Absolute Neutrophil Count 6.55 10^3/uL (1.2-6.7); Eosinophils % 5.6; HCT 38.9 % (40.0-50.0); HGB 13.9 g/dL (13.5-17.5); Immature Grans % 0.4; MCH 32.6 pg (27.0-33.0); MCHC 35.7 % (32.0-36.0); MCV 91.3 fL (80-95); MPV 9.5 fL (8.0-11.0); Monocytes % 6.5; Neutrophils % 62.5; Nucleated RBC 0 %; Platelet Count 252 10^3/uL (130-400); RBC 4.26 10^6/uL (4.36-5.78); RDW 12.1 % (11.8-14.1); RDW-SD 39.8 fL; WBC 10.48 10^3/uL (4.4-10.8)
[2020-08-21 18:17] LABS: Bilirubin Negative (Negative); Blood Negative (Negative); Clarity Clear (Clear); Glucose Negative (Negative); Ketones Negative (Negative); Leukocyte Esterase Negative (Negative); Nitrite Negative (Negative); Urobilinogen 0.2 EU/dL (Up TO 0.2); pH 6.5 (5-8)
[2020-08-21 18:18] LABS: ALT 75 U/L (16-63); AST 61 U/L (15-37); Alkaline Phosphatase 87 U/L (46-116); Anion Gap 12.7 mmol/L (3-11); BUN 9 mg/dL (7-18); Bilirubin, Total 0.5 mg/dL (0.2-1.0); CO2 26.3 mmol/L (21.0-32.0); Calcium 8.5 mg/dL (8.5-10.1); Chloride 104 mmol/L (98-107); ETHANOL BLOOD 121.4 mg/dL (<3); Glucose 87 mg/dL (74-106); Potassium 3.1 mmol/L (3.5-5.1); Sodium 143 mmol/L (136-145); TSH (W/Ref FT4) 1.04 uIU/mL (0.36-3.74); Total Protein 7.6 g/dL (6.4-8.2)
[2020-08-21 18:32] LABS: Salicylate 3.5 mg/dL (<2.8)
[2020-08-21 18:32] LABS: *AMPHETAMINES SCREEN URINE Negative (Negative); *BARBITURATES SCREEN URINE Negative (Negative); *BENZODIAZEPINES SCREEN URINE Negative (Negative); Cannabinoids THC Negative (Negative); Cocaine Screen,Urine Negative (Negative); METHADONE URINE SCREEN Negative (Negative); OPIATES URINE SCREEN Negative (Negative)
[2020-08-21 18:33] LABS: Acetaminophen < 2 ug/mL (10-30)
[2020-08-21 18:43] LABS: Tricyclic Antidepressants Negative (Negative)
--- NOTE | 2020-08-21 20:08 | PDOC.MHCN_ITS ---
Date of service: 08/21/20 Time of Service: 20:09 Mental Health Crisis Note Presenting Issue How did you arrive at the ED and why did you come: Client arrived to the ED after having a conversation with his family independence case manager. Client reported he took 10 of his 10mg Zyprexa on friday (08/19/2020) which is more than the recommended dosage prescribed to him by his PCP. Client stated he took them because he just wanted to go to sleep. Client was advised to come to the ED to get cleared medically and also to get assessed. Precipitating Factors Client denied SI/HI at this time during this assessment. Disposition BEHAVIOR: Client was cooperative but endorsed feeling stressed with current home environment and also presented as guarded. Client presented as cooperative, cordial and calm during this assessment. EYE CONTACT: Client maintained appropriate eye contact during this assessment MOOD: Client presented with depressed mood but expressed feeling hopeful that he can get some help with the support of his family and treatment team AFFECT: Client presented with blunted affect APPETITE: Client denied any eating disturbance at this time SLEEP(trouble falling/staying asleep: Client denied any sleeping disturbance at this time Plan Client is connected to a PCP (DR. Krupa Farooq) as well as a Platform Stapler (Huyen Bellamy, [facility]). Client will be discharged to his mother who he will be staying with till he gets situated as he reported he may be homeless at this time. Client will have his medications administered to him by his mother till he get to such a point when he is able to administer his own medications. Client would be followed by his PCP as well as family independence case manager and he has agreed to make an appointment tomorrow to see his PCP. Client reported he is scheduled to see a Substance Abuse Counselor through [facility] but it is unclear when that appointment will be. Both client and his mother are agreeable to this safety plan and have been encouraged to reach out to [facility] ([phone]) if needed. Client has also agreed to do daily check-ins with [facility] from 08/22/2020 to 08/25/2020. Client would be doing his first check-in tomorrow at 3 p.m. Signature Clinician's Name/Title: Adry Mcghee / ALEXANDRE Clinician
== END 2020-08-21 20:12 | disposition home or self-care (01) ==
PROVIDERS: Emergency Provider Physician Assistant
DX: F32.9 Major depressive disorder, single episode, unspecified (principal); R45.851 Suicidal ideations; F10.120 Alcohol abuse with intoxication, uncomplicated; Y90.6 Blood alcohol level of 120-199 mg/100 ml
CPT/HCPCS: 36415; 80053; 80307; 99284; 80320; 80329; 81003; 84443; 85025

== ENCOUNTER 2020-09-25 13:19 | Observation (INO) | payer MEDICAID, SELFPAY ==
[2020-09-25 13:54] VITALS: BP 129/73; PULSE 72; RESP 16; TEMP 36.9
--- NOTE | 2020-09-25 14:00 | ED.GENADUL_ITS ---
Discharge Plan Discharge Details Chief Complaint: PsychEval Admit Date/Time: 09/25/20 17:36 Admit Provider: Gurjit Up Attending Provider: Gurjit Up Primary Care Provider: None,None ED Provider: Annette Cordova Medical Decision Making 29-year-old male presents to the ED chief complaint of suicidal ideation. Patient states he wants to go into the would and starve to or overdose patient reports that he called the crisis hotline number prior to arrival and was instructed to present here. He states that he does not have a counselor he was scheduled on September 14 but missed this appointment. He denies doing anything over the last 24 to 48 hours to hurt himself. He states he has missed some of his regular scheduled medication for the last couple of days. He did take an olanzapine prior to arrival today. He does endorse smoking cigarettes, marijuana and a sixpack of alcohol prior to arrival today. He also reports that he fell down a number of stairs prior to arrival denies any loss of consciousness or hitting his head. He does have a superficial abrasion noted to his right elbow bleeding is controlled at this time. He denies any other injuries Patient placed in the room and - nurses station, CPS so ordered, screening labs and UDS ordered at this time. Patient placed in paper scrubs by medical staff assistant and belongings collected. Patient is calm and cooperative at this time. CBC, CMP, UDS, UA, Tylenol, Salicylate, and TSH ordered. Patient is medically cleared at this time, CBC CMP within normal limits, THC positive, ethyl alcohol level is 42.2 Mayelin with [facility] human services at bedside for patient evaluation. At this time she is recommending placement for psychiatric admission patient is voluntary at this time. 1709: Spoke with Dr. Up with Hospitalist, regarding admission for voluntary psych status and Suicidal ideation. Spoke with Andra with Care management, safety plan in place, no phone, no visitors, no shower until tomorrow. HPI General Mode of arrival: ambulatory . Date/Time Provider Initiated Documentation: 09/25/20 13:27 . Limitations to Documentation: no limitations . Information obtained by: patient . HPI Narrative: 29-year-old male presents to the ED chief complaint of suicidal ideation. Patient states he wants to go into the would and starve to or overdose patient reports that he called the crisis hotline number prior to arrival and was instructed to present here. He states that he does not have a counselor he was scheduled on September 14 but missed this appointment. He denies doing anything over the last 24 to 48 hours to hurt himself. He states he has missed some of his regular scheduled medication for the last couple of days. He did take an olanzapine prior to arrival today. He does endorse smoking cigarettes, marijuana and a sixpack of alcohol prior to arrival today. He also reports that he fell down a number of stairs prior to arrival denies any loss of consciousness or hitting his head. He does have a superficial abrasion noted to his right elbow bleeding is controlled at this time. He denies any other injuries. Related Data Home Medications Medication Instructions Recorded Confirmed fluoxetine 20 mg PO DAILY 08/21/20 09/25/20 olanzapine 10 mg PO HS 08/21/20 09/25/20 trazodone 50 mg PO HS 08/21/20 09/25/20 Allergies Allergy/AdvReac Type Severity Reaction Status Date / Time No Known Allergies Allergy Unverified 09/25/20 14:00 General Stated Complaint: PsychEval ANGELITO: 2 Review of Systems Narrative: Constitutional: Negative for weight loss, alert and oriented, somewhat disheveled normal body habitus, appears comfortable. HEENT: Denies headaches, blurry vision, nasal discharge, sore throat, trouble swallowing. Chest: Denies chest pain, palpitations, irregular rhythm, hypertension. Respiratory: Denies Shortness of breath, cough, hemoptysis. GI: Denies abdominal pain, nausea, vomiting, diarrhea, constipation. : Denies dysuria, hematuria, flank pain, rectal bleeding. Neuro: Denies dizziness, blurry vision, weakness, syncope, headache or facial numbness. Hematologic: Denies easy bruising, intolerance to heat or cold, hair loss. Psychiatric Psychiatric: Reports as per HPI, Reports depression, Denies homicidal ideation and Reports suicidal ideation [facility] Social History Smoking/Tobacco Use Status: Current every day Tobacco Type: cigarettes Smoking risk assessment performed?: Yes Alcohol Intake: current Alcohol Intake frequency: 3 or more drinks per day Alcohol type: other Drug use: Daily Substance use type: marijuana Details: 6-12 twisted teas/day Do you feel safe at home: No Do you feel safe in your relationship?: No Exam Narrative Exam Narrative: Constitutional: Alert and oriented x3. Appears stated age. Normal body habitus. Head: Normocephalic, no trauma. Eyes: Pupils PERRLA, Red reflex noted, EOM's intact. Eyelids symmetrical without lesions, discharge, or swelling. ENT: Bilateral TM's WNL, External ear normal to inspection, no mastoid TTP, swelling, or erythema, Nasal turbinates WNL, no nasal discharge. Normal dentition, Posterior pharynx WNL, no exudate. Chest: RRR, Normal S1, S2, distal pulses intact. Resp: Lungs clear to auscultation bilaterally, no wheezes, rales, or rhonchi. Musculoskeletal: Normal gait, 5/5 strength to all four extremities. Small superficial abrasion noted to his right elbow. Skin: No suspicious rashes or lesions. Capillary refill less than 2 sec. Neurologic: Cranial nerves II-XII intact. Alert and oriented x 3. DTR's intact. Hematologic/Lymphatic: No ecchymosis, no lymphadenopathy. Psych Appearance: disheveled Speech and Movement: slowed movement Mood: labile mood Affect: sad Attitude: cooperative Thought Process: normal Thought Content: suicidality Insight: poor Judgment: poor Course Vital Signs Vital signs: Vital Signs Temperature 36.9 C 09/25/20 13:54 Pulse 72 09/25/20 13:54 Respiratory Rate 16 09/25/20 13:54 Blood Pressure 129/73 09/25/20 13:54 Temperature 36.9 C 09/25/20 13:54 Temperature Source Skin 09/25/20 13:54 Pulse 72 09/25/20 13:54 Respiratory Rate 16 09/25/20 13:54 Respiratory Effort 09/25/20 13:59 Blood Pressure 129/73 09/25/20 13:54 Blood Pressure Position Sitting 09/25/20 13:54
[2020-09-25 14:13] LABS: Bilirubin Negative (Negative); Blood Negative (Negative); Clarity Clear (Clear); Glucose Negative (Negative); Ketones Negative (Negative); Leukocyte Esterase Negative (Negative); Nitrite Negative (Negative); Urobilinogen 0.2 EU/dL (Up TO 0.2); pH 6.5 (5-8)
[2020-09-25 14:23] LABS: *AMPHETAMINES SCREEN URINE Negative (Negative); *BARBITURATES SCREEN URINE Negative (Negative); *BENZODIAZEPINES SCREEN URINE Negative (Negative); Cannabinoids THC Positive (Negative); Cocaine Screen,Urine Negative (Negative); METHADONE URINE SCREEN Negative (Negative); OPIATES URINE SCREEN Negative (Negative)
[2020-09-25 14:24] LABS: Abs Immature Grans 0.01 10^3/uL (0.0-0.06); Absolute Basophil Count 0.09 10^3/uL (0.0-0.2); Absolute Eosinophil Count 0.34 10^3/uL (0.0-0.7); Absolute Lymphocyte Count 2.77 10^3/uL (1.2-3.4); Absolute Monocyte Count 0.34 10^3/uL (0.1-0.8); Basophils % 1.4; Eosinophils % 5.3; HCT 40.5 % (40.0-50.0); HGB 14.3 g/dL (13.5-17.5); Immature Grans % 0.2; Lymphocytes % 42.9; MCH 32.3 pg (27.0-33.0); MCHC 35.3 % (32.0-36.0); MCV 91.4 fL (80-95); MPV 9.5 fL (8.0-11.0); Monocytes % 5.3; Neutrophils % 44.9; Nucleated RBC 0 %; Platelet Count 282 10^3/uL (130-400); RBC 4.43 10^6/uL (4.36-5.78); RDW 12.1 % (11.8-14.1); RDW-SD 40.4 fL; WBC 6.45 10^3/uL (4.4-10.8)
[2020-09-25 14:24] LABS: Tricyclic Antidepressants Negative (Negative)
[2020-09-25 14:49] LABS: Anion Gap 12.9 mmol/L (3-11); BUN 7 mg/dL (7-18); CO2 25.1 mmol/L (21.0-32.0); CREATININE 1.2 mg/dL (0.70-1.30); Calcium 8.7 mg/dL (8.5-10.1); Chloride 106 mmol/L (98-107); ETHANOL BLOOD 42.2 mg/dL (<3); Glucose 88 mg/dL (74-106); Potassium 3.8 mmol/L (3.5-5.1); Sodium 144 mmol/L (136-145); TSH (W/Ref FT4) 0.45 uIU/mL (0.36-3.74)
[2020-09-25 15:02] LABS: Acetaminophen < 2 ug/mL (10-30); Salicylate 3.2 mg/dL (<2.8)
--- NOTE | 2020-09-25 16:50 | PDOC.MHCN ---
Date of service: 09/25/20 Time of Service: 16:50 Mental Health Crisis Note Presenting Issue How did you arrive at the ED and why did you come: Pt arrived to the ER via himself. He is seeking a voluntary admission due to SI. He denied HI. Precipitating Factors Pt admits to persistent thoughts of SI with a plan to go into the jimenez and starving himself or overdosing on his medications. He reported that he has collected pills as well as missed doses to be able to do this. There are no signs of delusions. Disposition BEHAVIOR: Pt is cooperative and engaged. He reported that he has court on Friday for his third DUI resulting in him sleeping in a parking lot with his child in the back seat. He reported that DCF is also coming to his home at 3pm today also relating to this DUI charge. Pt is not being a behavior problem and is soft spoken and respectful. EYE CONTACT: Eye contact is good. MOOD: Pt described his mood as irritable and manic and he believes he has bipolar disorder like his family. He presents as depressed. AFFECT: Pt's affect appeared normal although he is wearing a mask which makes it difficult to read. APPETITE: Pt reported a decreased appetite. SLEEP(trouble falling/staying asleep: Pt reported that his appetite is alright and takes trazadone for this. Plan No hospital available today. Referrals have been made to [facility], [facility], [facility] and [facility]. [facility] do not have any available beds. A huddle was had with the Region Manager as the hospital is flooded with other Pt's and a care plan was put in place. Signature Clinician's Name/Title: Mayelin James MS, [facility] Emergency Services Clinician
--- NOTE | 2020-09-25 17:10 | PDOC.CMSAFED ---
- If Service Date Differs Date of service: 09/25/20 Time of Service: 17:10 Care Management Safety Plan Status: Voluntary - Reason for Wait Reason for Wait: Inpatient Admission Chief Complaint: Marcos is a 29 year old male who presents in the ED for suicidal ideation with a plan of going into the jimenez and either starving himself or taking an overdose of medication. He reportedly has had 2 previous suicide attempts by strangling/hanging, with the last attempt being approximately 2 months ago. Marcos reports drinking a 12-pack of beer daily and smoking THC 4 times a day. Marcos is seeking a voluntary psychiatric placement. He was evaluated by Natalie this afternoon and was found to meet criteria for a voluntary placement. Referrals are faxed to [facility], [facility], [facility], and [facility] for review. There are no available beds today. VOLUNTARY FOR INPATIENT PSYCHIATRIC STABILIZATION. Patient is appropriate in all interactions since arriving at [facility]; Pt has demonstrated appropriate coping and communication skills, has articulated his or her needs and concerns and is fully engaged during staff interactions. A huddle cannot be held due to the volume in the ED. After discussing the safety plan individually with Lilli, nursing tree trimming supervisor, Annette, ED provider, Kimberley, charge nurse, and BERNADETTE Dick, the following plan is approved: Safety plan has been established with patient, and care team, to adhere to patient goals, identify restrictions based on behavioral status, address nutrition, and determine allowed personal belongings, tools for hygiene and personal care. Determine level of activity including ambulation, level of supervision, visitors, and determine privileges based on behaviors and level of engagement by pt. SAFETY PLAN: 1. Will remain on suicide precautions. In Paper Clothes 2. Will remain in room under direct supervision of one-on-one staff at all times provided by CPSO, TONY, TIRE SPOTTER learning center coordinator. 3. May have paper cups, plates, finger foods as well as a cardboard spoon with which to eat meals. 4. Follow [facility] Management of the Admitted Behavioral Health Patient policy. 5. Comfort bath system only. 6. No personal belongings 7. Visitors-No visitors at this time 8. Activities: Soft cart items, music tablet, television if available, and other activities at RN discretion. 9. Bathroom privileges with escort in the ED. May use bathroom available in room without limitation on Med/Surg. 10. Phone: No phone privileges at this time. 11. Due to VOLUNTARY status, if patient wishes to leave [facility], staff will contact [facility] Crisis Screener ([phone]) and On-Call Warehouse Material Handler ([phone]) as soon as possible. In the event of elopement, notify [facility] Police ([phone]). Patient is currently voluntarily at [facility] and seeking inpatient admission when a bed becomes available. [facility] Frontline Stonecutter Assistant will continue seeking placement. Please contact the Manager Sales And Marketing Warehouse Material Handler ([phone]) and [facility] Stonecutter Assistant ([phone]) for any needed changes in the Safety Plan. Safety plan has been provided to interdepartmental care team.
--- NOTE | 2020-09-25 17:18 | HPE_ITS ---
Date of service: 09/25/20 Time of Service: 17:18 Assessment and Plan Assessment and plan (1) Depression with suicidal ideation: Status: Acute Assessment and plan: Depression/SI: will monitor pending transfer to psych facility. No confirmation of meds at present, will defer to psych EtOH; reports 12 pack/day, has never stopped so does not know of any w/d issues: will place on scheduled Librium and CIWA, banana bag History of Present Illness History of Present Illness Chief Complaint: SI Narrative: 29 male with lonh h/o depression, reports chronically suicidal, worse recently. Does not identify any specific precipitant for me. In ER medically cleared -- other than EtOH intoxication -- and is admitted voluntarily pending transfer to psych facility. Review of Systems All systems reviewed & are unremarkable except as noted in HPI and below PFSH Social History Smoking/Tobacco Use Status: Current every day Tobacco Type: cigarettes Smoking risk assessment performed?: Yes Alcohol Intake: current Alcohol Intake frequency: 3 or more drinks per day A lcohol type: other Drug use: Daily Substance use type: marijuana Details: 6-12 twisted teas/day Do you feel safe at home: No Do you feel safe in your relationship?: No Meds Allergies and Home Medications Allergies Allergy/AdvReac Type Severity Reaction Status Date / Time No Known Allergies Allergy Unverified 09/25/20 14:00 Home Medications Medication Instructions Recorded Confirmed Type fluoxetine 20 mg PO DAILY 08/21/20 08/21/20 History olanzapine 10 mg PO HS 08/21/20 08/21/20 History trazodone 50 mg PO HS 08/21/20 08/21/20 History Exam Narrative Exam Narrative: 129/73, 72, 36.9, 16. HEENT atraumatic; neck supple; lungs clear; heart RRR; abdomen soft and NT; extremities w/o edema; neuro Ox3, calm, moves all 4s Results Labs Result diagrams: 09/25/20 14:18 09/25/20 14:18 Labs: Laboratory Results - last 24 hr 09/25/20 09/25/20 09/25/20 13:56 13:56 14:18 WBC RBC Hgb Hct MCV MCH MCHC RDW Plt Count MPV Immature Gran % Neutrophils % Lymphocytes % Monocytes % Eosinophils % Basophils % Nucleated RBC % Absolute Neutrophils Absolute Lymphocytes Absolute Monocytes Absolute Eosinophils Absolute Basophils Sodium 144 Potassium 3.8 Chloride 106 Carbon Dioxide 25.1 Anion Gap 12.9 H BUN 7 Creatinine 1.2 Estimated GFR/1.73 m2 >= 60.00 Glucose 88 Calcium 8.7 TSH 0.45 Urine Color Yellow Urine Clarity Clear Urine pH 6.5 Ur Specific [place] 1.010 Urine Protein Negative Urine Ketones Negative Urine Blood Negative Urine Nitrite Negative Urine Bilirubin Negative Urine Urobilinogen 0.2 Ur Leukocyte Esterase Negative Urine Glucose Negative Salicylates Urine Opiates Screen Negative Urine Methadone Screen Negative Acetaminophen Ur Barbiturates Screen Negative Ur Tricyclics Screen Negative Ur Amphetamines Screen Negative U Benzodiazepines Scrn Negative Urine Cocaine Screen Negative Ur THC Screen Positive A Ethyl Alcohol 42.2 09/25/20 09/25/20 14:18 14:18 WBC 6.45 RBC 4.43 Hgb 14.3 Hct 40.5 MCV 91.4 MCH 32.3 MCHC 35.3 RDW 12.1 Plt Count 282 MPV 9.5 Immature Gran % 0.2 Neutrophils % 44.9 Lymphocytes % 42.9 Monocytes % 5.3 Eosinophils % 5.3 Basophils % 1.4 Nucleated RBC % 0 Absolute Neutrophils 2.90 Absolute Lymphocytes 2.77 Absolute Monocytes 0.34 Absolute Eosinophils 0.34 Absolute Basophils 0.09 Sodium Potassium Chloride Carbon Dioxide Anion Gap BUN Creatinine Estimated GFR/1.73 m2 Glucose Calcium TSH Urine Color Urine Clarity Urine pH Ur Specific [place] Urine Protein Urine Ketones Urine Blood Urine Nitrite Urine Bilirubin Urine Urobilinogen Ur Leukocyte Esterase Urine Glucose Salicylates 3.2 Urine Opiates Screen Urine Methadone Screen Acetaminophen < 2 Ur Barbiturates Screen Ur Tricyclics Screen Ur Amphetamines Screen U Benzodiazepines Scrn Urine Cocaine Screen Ur THC Screen Ethyl Alcohol Last Vital Signs Temp 36.9 C 09/25/20 13:54 Pulse 72 09/25/20 13:54 Resp 16 09/25/20 13:54 BP 129/73 09/25/20 13:54
[2020-09-25 17:50] LABS: Source Nasal/Nares
[2020-09-25 18:47] VITALS: BP 117/71; PULSE 56; RESP 18; TEMP 36.2; O2SAT 97
[2020-09-25 19:42] LABS: COVID-19 PCR Negative (Negative)
[2020-09-25] MEDS: chlordiazePOXIDE 25 MG CAP PO (20:18)
[2020-09-25] MEDS: Normal Saline Flush 10 ML SYR (20:18)
[2020-09-25] MEDS: MAGNESIUM SULFATE 8.12 MEQ, MULTIVITAMIN 10 ML, THIAMINE 100 MG, FOLIC ACID 1 MG in Nor... 168.867 MG IV (21:09)
[2020-09-25] MEDS: Normal Saline Flush 10 ML SYR IVP (21:10)
[2020-09-26] MEDS: Normal Saline Flush 10 ML SYR IVP (06:30)
[2020-09-26 07:02] VITALS: BP 116/66; PULSE 59; RESP 20; TEMP 36.2; O2SAT 98
[2020-09-26] MEDS: chlordiazePOXIDE 25 MG CAP PO ×3 (07:39→20:39)
--- NOTE | 2020-09-26 10:44 | CMSP_ITS ---
- If Service Date Differs Date of service: 09/26/20 Time of Service: 10:48 Care Management Safety Plan Status: Voluntary - Reason for Wait Reason for Wait: Inpatient Admission (NO BEDS available ) VOLUNTARY FOR INPATIENT PSYCHIATRIC STABILIZATION. Marcos has been appropriate in all interactions since arriving at [facility]; he iss demonstrating appropriate coping and communication skills and is fully engaged during staff interactions. A huddle was held at 1030 AM with CARMEN Whittaker, ANAT Jesus, NASH Reeder, and this physician underwriter, please note changes to safety plan below. Safety plan has been established with patient, and care team, to adhere to patient goals, identify restrictions based on behavioral status, address nutrition, and determine allowed personal belongings, tools for hygiene and personal care. Determine level of activity including ambulation, level of supervision, visitors, and determine privileges based on behaviors and level of engagement by pt. SAFETY PLAN: 1. Will remain on suicide precautions. In Paper Clothes 2. Will remain in room under direct supervision of one-on-one staff at all times provided by CPSO, TONY, SAFE DEPOSIT BOX RENTAL CLERK director sales and marketing. 3. May have paper cups, plates, finger foods as well as a cardboard spoon with which to eat meals. 4. Follow [facility] Management of the Admitted Behavioral Health Patient policy. 5. Comfort bath system, shower permitted with escort at RN discretion. 6. No personal belongings 7. Visitors-No visitors at this time 8. Activities: Soft cart items, music tablet, television if available, and other activities at RN discretion. 9. Bathroom privileges with escort in the ED. May use bathroom available in room without limitation on Med/Surg. 10. Phone: Incoming/Outgoing phone calls permitted on [facility] cordless phone per patient preference and at RN discretion. 11. Due to VOLUNTARY status, if patient wishes to leave [facility], staff will contact [facility] Crisis Screener ([phone]) and On-Call Diesel Mechanic Apprentice ([phone]) as soon as possible. In the event of elopement, notify [place] [employer] Police ([phone]). Patient is currently voluntarily at [facility] and seeking inpatient admission when a bed becomes available. [facility] Frontline Breakdown Worker will continue seeking placement. Please contact the Helicopter Engineer Diesel Mechanic Apprentice ([phone]) and [facility] Breakdown Worker ([phone]) for any needed changes in the Safety Plan. Safety plan has been provided to interdepartmental care team.
--- NOTE | 2020-09-26 11:23 | PDOC.MHCN_ITS ---
Date of service: 09/26/20 Time of Service: 09:25 Mental Health Crisis Note Presenting Issue How did you arrive at the ED and why did you come: Client arrived to ED on 09/25/20 via self and presented with thoughts of suicide with intent and plan. Precipitating Factors Client endorsed fleeting thoughts of suicide but no HI. Client stated if he were to be discharged today, he would attempt to end his life. Disposition BEHAVIOR: Client presented with fair insight but poor judgement. Client was engaging throughout this assessment. Client presented as fatigued as well. EYE CONTACT: Client maintained appropriate eye contact MOOD: Client presented with depressed and hopeless mood. AFFECT: Client presented with flat affect APPETITE: Client reported poor appetite SLEEP(trouble falling/staying asleep: Client reported poor sleep Plan Client is seeking voluntary placement for in-patient psychiatric treatment and/or detox. Client will need to be reassessed by [facility] if and when decides to be discharged before getting placed for treatment. Referrals have been sent to , [facility], [facility] and and they are all pending review and bed availability. There are currently no beds available in any of the above mentioned places. Client will be reassessed daily by [facility] till he is placed
--- NOTE | 2020-09-26 14:53 | PHA.REVIEW ---
Pharmacy Admission Review - Admission Clinical Review (Last Reviewed 09/25/20 @ 17:31 by Gurjit Up MD) Depression with suicidal ideation (Acute) No Known Allergies Allergy (Unverified 09/25/20 14:00) Resuscitation Status Full Code Height 6 ft 1 in Weight 83.7 kg - Renal Dosing Renal Dosing: BUN 7 mg/dL (7-18) 09/25/20 14:18 Creatinine 1.2 mg/dL (0.70-1.30) 09/25/20 14:18 Medications needing adjustments: Reviewed (Crcl ~102 mL/min current meds okay) - Anticoagulation Anticoagulation: Hgb 14.3 g/dL (13.5-17.5) 09/25/20 14:18 Hct 40.5 % (40.0-50.0) 09/25/20 14:18 Plt Count 282 10^3/uL (130-400) 09/25/20 14:18 Creatinine 1.2 mg/dL (0.70-1.30) 09/25/20 14:18 DVT Prophylaxis: N/A Therapeutic Anticoagulation: N/A - Opiate Usage Evaluate Pain Scale/Pains Meds: N/A - Relevant Labs Sodium 144 mmol/L (136-145) 09/25/20 14:18 Potassium 3.8 mmol/L (3.5-5.1) 09/25/20 14:18 Chloride 106 mmol/L (98-107) 09/25/20 14:18 Electrolytes, C-Reactive P, ESR: Reviewed - DM Control DM Control: Glucose 88 mg/dL (74-106) 09/25/20 14:18 Insulin Dosing: N/A - Heart Failure/[place] EF%, JENY's, B-Blockers, Diuretics: N/A - BP Control BP Control: Blood Pressure 116/66 If elevated: N/A - Qtc Review If Elevated: N/A - IV to PO Switch IV Medications: Reviewed - Home Meds Home Med List reviewed: Reviewed (Some meds on external med hisotry that are not on the pt's home med list, will see if nursing can doublecheck with the patient.) - Current meds Current Medication Order Review: Reviewed - Comments Comments/Follow Ups: Watch VS, labs and for med changes.
[2020-09-26 15:35] VITALS: BP 111/72; PULSE 54; RESP 16; TEMP 36.7; O2SAT 98
--- NOTE | 2020-09-26 17:12 | PGE_ITS ---
Date of Service Date of service: 09/26/20 Time of Service: 17:12 Assessment and Plan Assessment and plan (1) Depression with suicidal ideation: Status: Acute Assessment and plan: continue CPSO. awaiting voluntary inpatient psychiatric care no behavioral issues here mental health following continue home medication discussed with Dr Wright (2) Alcohol use disorder: Status: Acute Assessment and plan: no sign of withdrawal. no history of seizures continue librium taper Subjective Subjective Patient reports: no new complaints, tolerating liquids well and tolerating a re gular diet Interval history since last seen: remains suicidal and depressed. states he would walk into jimenez and no come back. states he is laid off from work and this is a great time to get his symptoms under control Exam Const General: cooperative, healthy appearing, comfortable and no acute distress Nutritional Appearance: average body habitus Orientation: alert, awake and oriented x3 HENMT Head: normal to inspection, normocephalic and atraumatic Face and sinus: normal facial exam Mouth: oral mucosae normal Resp Effort & Inspection: normal respiratory effort Auscultation: clear to auscultation bilaterally Cardio Rate: regular rate Rhythm: regular rhythm GI Palpation: soft Auscultation: normal bowel sounds Skin General skin exam: no rashes or lesions noted Neuro General: patient alert, patient awake and patient oriented x3 Psych Appearance: grossly normal Mental Status: mental status grossly normal Speech and Movement: speech and movement normal Mood: congruent mood Affect: blunted (flat but makes eye contact) Attitude: cooperative Thought Process: normal Thought Content: normal Objective Last Vital Signs Temp 36.7 C 09/26/20 15:35 Pulse 54 L 09/26/20 15:35 Resp 16 09/26/20 15:35 BP 111/72 09/26/20 15:35 Pulse Ox 98 09/26/20 15:35 Laboratory Results - last 24 hr 09/25/20 17:45 COVID-19 Source Nasal/Nares SARS-CoV-2 (PCR) Negative
[2020-09-26] MEDS: traZODone 50 MG TAB PO (22:28)
[2020-09-26] MEDS: OLANZapine 10 MG TAB PO (22:28)
[2020-09-27 07:35] VITALS: BP 116/75; PULSE 49; RESP 16; TEMP 36.1; O2SAT 97
[2020-09-27] MEDS: Thiamine 100 MG TAB PO (08:21)
[2020-09-27] MEDS: FLUoxetine 20 MG CAP PO (08:21)
[2020-09-27] MEDS: chlordiazePOXIDE 25 MG CAP PO ×3 (08:21→21:08)
[2020-09-27] MEDS: Nicotine 21 MG/24 HR PATCH TD (08:38)
--- NOTE | 2020-09-27 13:17 | CMSP_ITS ---
- If Service Date Differs Date of service: 09/27/20 Time of Service: 13:19 Care Management Safety Plan Status: Voluntary - Reason for Wait Reason for Wait: Inpatient Admission (No Beds available: NUBIA contacted [facility], YELENA, Marcela and Jamar. John reported she would be outreaching to [facility] as well. ) VOLUNTARY FOR INPATIENT PSYCHIATRIC STABILIZATION. Marcos has been appropriate in all interactions since arriving at [facility]; he iss demonstrating appropriate coping and communication skills and is fully engaged during staff interactions. Safety plan has been established with patient, and care team, to adhere to patient goals, identify restrictions based on behavioral status, address nutrition, and determine allowed personal belongings, tools for hygiene and personal care. Determine level of activity including ambulation, level of supervision, visitors, and determine privileges based on behaviors and level of engagement by pt. [facility] who reported he is due to appear on 09/14 09/04@0900. They offered a [email or web address] virtual appointment: Code: [id number], Access Code: [id number], attendee number hit #. SAFETY PLAN: 1. Will remain on suicide precautions. In Paper Clothes 2. Will remain in room under direct supervision of one-on-one staff at all times provided by CPSO, QUALITY CONTROL LAB TECHNICIAN, CHIEF TECHNICIAN telephone switchboard operator. 3. May have paper cups, plates, finger foods as well as a cardboard spoon with which to eat meals. 4. Follow [facility] Management of the Admitted Behavioral Health Patient policy. 5. Comfort bath system, shower permitted with escort at RN discretion. 6. No personal belongings 7. Visitors-No visitors at this time 8. Activities: Soft cart items, music tablet, television, and other activities at RN discretion. 9. Bathroom privileges with escort in the ED. May use bathroom available in room without limitation on Med/Surg. 10. Phone: Incoming/Outgoing phone calls permitted on [facility] cordless phone per patient preference and at RN discretion. 11. Due to VOLUNTARY status, if patient wishes to leave [facility], staff will contact [facility] Crisis Screener ([phone]) and On-Call Paint Grinder Stone Mill ([phone]) as soon as possible. In the event of elopement, notify [facility] Police ([phone]). Patient is currently voluntarily at [facility] and seeking inpatient admission when a bed becomes available. [facility] Frontline Special Services Agent will continue seeking placement. Please contact the Processing Operator Paint Grinder Stone Mill ([phone]) and [facility] Special Services Agent ([phone]) for any needed changes in the Safety Plan. Safety plan has been provided to interdepartmental care team.
--- NOTE | 2020-09-27 13:17 | PDOC.CMSAFE ---
- If Service Date Differs Date of service: 09/27/20 Time of Service: 13:19 Care Management Safety Plan Status: Voluntary - Reason for Wait Reason for Wait: Inpatient Admission (No Beds available: NUBIA contacted [facility], YELENA, Marcela and Jamar. John reported she would be outreaching to [facility] as well. ) VOLUNTARY FOR INPATIENT PSYCHIATRIC STABILIZATION. Marcos has been appropriate in all interactions since arriving at [facility]; he iss demonstrating appropriate coping and communication skills and is fully engaged during staff interactions. Safety plan has been established with patient, and care team, to adhere to patient goals, identify restrictions based on behavioral status, address nutrition, and determine allowed personal belongings, tools for hygiene and personal care. Determine level of activity including ambulation, level of supervision, visitors, and determine privileges based on behaviors and level of engagement by pt. NUBIA contacted [facility] who reported he is due to appear on 09/29/20@0900. They offered a [employer] virtual appointment: Code: [id number], Access Code: [id number], attendee number hit #. SAFETY PLAN: 1. Will remain on suicide precautions. In Paper Clothes 2. Will remain in room under direct supervision of one-on-one staff at all times provided by CPSO, INSOLE BUFFER, PROJECT MANAGER ENTERTAINMENT AND MEDIA chief order dispatcher. 3. May have paper cups, plates, finger foods as well as a cardboard spoon with which to eat meals. 4. Follow [facility] Management of the Admitted Behavioral Health Patient policy. 5. Comfort bath system, shower permitted with escort at RN discretion. 6. No personal belongings 7. Visitors-No visitors at this time 8. Activities: Soft cart items, music tablet, television, and other activities at RN discretion. 9. Bathroom privileges with escort in the ED. May use bathroom available in room without limitation on Med/Surg. 10. Phone: Incoming/Outgoing phone calls permitted on [facility] cordless phone per patient preference and at RN discretion. 11. Due to VOLUNTARY status, if patient wishes to leave [facility], staff will contact [facility] Crisis Screener ([phone]) and On-Call Fire Safety Manager ([phone]) as soon as possible. In the event of elopement, notify [facility] Police ([phone]). Patient is currently voluntarily at [facility] and seeking inpatient admission when a bed becomes available. [facility] Frontline Oil Refinery Operator will continue seeking placement. Please contact the Global Security Architect Fire Safety Manager ([phone]) and [facility] Oil Refinery Operator ([phone]) for any needed changes in the Safety Plan. Safety plan has been provided to interdepartmental care team.
--- NOTE | 2020-09-27 14:52 | W.PM.PROGNOT ---
Date of Service Date of service: 09/27/20 Time of Service: 14:52 Assessment and Plan Assessment and plan (1) Depression with suicidal ideation: Status: Acute Assessment and plan: continue CPSO. awaiting voluntary inpatient psychiatric care no behavioral issues here mental health following continue home medication discussed with Dr Wright (2) Alcohol use disorder: Status: Acute Assessment and plan: no sign of withdrawal. no history of seizures continue librium taper thiamine daily Subjective Subjective Patient reports: no new complaints, tolerating liquids well, tolerating a regular diet and afebrile Interval history since last seen: remains medically stable. no behavioral issues, eating and drinking and cooperative. Exam Const General: cooperative, healthy appearing, comfortable and no acute distress Nutritional Appearance: average body habitus Orientation: alert, awake and oriented x3 HENMT Head: normal to inspection, normocephalic and atraumatic Face and sinus: normal facial exam Mouth: oral mucosae normal Resp Effort & Inspection: normal respiratory effort Auscultation: clear to auscultation bilaterally Cardio Rate: regular rate Rhythm: regular rhythm GI Palpation: soft Auscultation: normal bowel sounds Skin General skin exam: no rashes or lesions noted Neuro General: patient alert, patient awake and patient oriented x3 Psych Appearance: grossly normal Mental Status: mental status grossly normal Speech and Movement: speech and movement normal Mood: congruent mood Affect: blunted (flat but makes eye contact) Attitude: cooperative Thought Process: normal Thought Content: normal Objective Last Vital Signs Temp 36.1 C L 09/27/20 07:35 Pulse 49 L 09/27/20 07:35 Resp 16 09/27/20 07:35 BP 116/75 09/27/20 07:35 Pulse Ox 97 09/27/20 07:35
--- NOTE | 2020-09-27 15:34 | PDOC.MHCN ---
Date of service: 09/27/20 Time of Service: 09:30 Mental Health Crisis Note Presenting Issue How did you arrive at the ED and why did you come: Client arrived to ED via self due to thoughts of SI with intent and plan. Precipitating Factors Client denied SI and HI today. However, client endorsed having fleeting thoughts of SI. Disposition BEHAVIOR: Client presented as engaging and cooperative. Client presented with fair insight and judgment. EYE CONTACT: Client maintained appropriate eye contact MOOD: Client presented with depressed mood. AFFECT: Client presented with flat affect APPETITE: Client reported his appetite was okay SLEEP(trouble falling/staying asleep: Client reported he had been sleeping more Plan Client is still agreeable to voluntary placement and will remain at [facility] till he is placed. Client will be reassessed daily by [facility] till he is placed for treatment. Referrals have been davonte to [facility], [facility], [facility] and [facility]. They are all pending bed availability at this time. Signature Clinician's Name/Title: Adry Mcghee / Emergency Service Clinician
[2020-09-27 16:01] VITALS: BP 138/68; PULSE 62; RESP 16; TEMP 36.5; O2SAT 99
[2020-09-27] MEDS: lamoTRIgine 25 MG TAB PO (16:01)
[2020-09-27] MEDS: OLANZapine 10 MG TAB PO (21:09)
[2020-09-28 02:50] VITALS: BP 112/67; PULSE 71; RESP 18; TEMP 36.7; O2SAT 96
[2020-09-28] MEDS: Thiamine 100 MG TAB PO (08:23)
[2020-09-28] MEDS: chlordiazePOXIDE 25 MG CAP PO (08:23)
[2020-09-28] MEDS: lamoTRIgine 25 MG TAB PO (08:23)
[2020-09-28] MEDS: FLUoxetine 20 MG CAP PO (08:23)
[2020-09-28 08:45] VITALS: BP 124/79; PULSE 90; RESP 16; TEMP 36.9; O2SAT 96
--- NOTE | 2020-09-28 10:28 | W.INMHPGNOTE ---
Date of service: 09/28/20 Time of Service: 10:28 Mental Health Crisis Note Presenting Issue How did you arrive at the ED and why did you come: Pt arrived to the ER seeking voluntary placement on 09.25.2020. He endorsed SI with plan and intent. Precipitating Factors Pt denied current ideation however he has had fleeting in the last few days. He denied HI. Disposition BEHAVIOR: Pt presented as cooperative and engaged. He was lying down when this clinician arrived however, sat up to make eye contact. EYE CONTACT: Eye contact is good. MOOD: Mood presented as depressed. AFFECT: Pt's affect is flat. APPETITE: Pt reported that appetite is okay. SLEEP(trouble falling/staying asleep: Pt reported that he is sleeping well but is still tired. Plan Pt will stay at [facility] pending placement availability. Pt will be evaluated daily by [facility] while they seek placement or the Pt is safe enough to discharge back home to his daily activities. [facility] had a huddle with his medical team and no changes are being made. Calls were made to all facilities with no possible placement today. Signature Clinician's Name/Title: Mayelin James MS, [facility] Emergency Services Clinician
--- NOTE | 2020-09-28 13:07 | W.PM.PROGNOT ---
Date of Service Date of service: 09/28/20 Time of Service: 13:07 Assessment and Plan Assessment and plan (1) Depression with suicidal ideation: Status: Acute Assessment and plan: continue CPSO. awaiting voluntary inpatient psychiatric care no behavioral issues here mental health following continue home medication discussed with Dr Wright (2) Alcohol use disorder: Status: Acute Assessment and plan: no sign of withdrawal. no history of seizures continue librium taper thiamine daily Subjective Subjective Patient reports: no new complaints, tolerating liquids well, tolerating a regular diet and afebrile Interval history since last seen: no signs of withdrawal Exam Const General: cooperative, healthy appearing, comfortable and no acute distress Nutritional Appearance: average body habitus Orientation: alert, awake and oriented x3 HENMT Head: normal to inspection, normocephalic and atraumatic Face and sinus: normal facial exam Mouth: oral mucosae normal Resp Effort & Inspection: normal respiratory effort Auscultation: clear to auscultation bilaterally Cardio Rate: regular rate Rhythm: regular rhythm GI Palpation: soft Auscultation: normal bowel sounds Skin General skin exam: no rashes or lesions noted Neuro General: patient alert, patient awake and patient oriented x3 Psych Appearance: grossly normal Mental Status: mental status grossly normal Speech and Movement: speech and movement normal Mood: congruent mood Affect: blunted (flat but makes eye contact) Attitude: cooperative Thought Process: normal Thought Content: normal Objective Last Vital Signs Temp 36.9 C 09/28/20 08:45 Pulse 90 09/28/20 08:45 Resp 16 09/28/20 08:45 BP 124/79 09/28/20 08:45 Pulse Ox 96 09/28/20 08:45
--- NOTE | 2020-09-28 15:18 | W.PM.DS.N ---
Date of service: 09/28/20 Time of Service: 15:19 DS: Diagnosis Discharge Diagnosis (1) Depression with suicidal ideation: Status: Acute Asessment and Plan: will be treated inpatient voluntarily at a psychiatric facility (2) Alcohol use disorder: Status: Acute Asessment and Plan: no withdrawal symptoms Discharge Plan Disposition Patient Disposition: [facility] Condition: Stable Discharge Details Reason For Visit: Depression/SI Admit Date/Time: 09/25/20 17:36 Admit Provider: Gurjit Up Attending Provider: Gurjit Up Primary Care Provider: None,None Hospital Course Hospital Course: This is a 29-year-old male presents to the ED chief complaint of suicidal ideation. Patient states he wants to go into the [facility] and starve to or overdose patient reports that he called the crisis hotline number prior to arrival and was instructed to present to the emergency department. He states that he does not have a counselor he was scheduled on September 14 but missed this appointment. He denies doing anything over the last 24 to 48 hours to hurt himself. He states he has missed some of his regular scheduled medication for the last couple of days. He did take an olanzapine prior to arrival. He does endorse smoking cigarettes, marijuana and a six pack of alcohol prior to arrival. He also reports that he fell down a number of stairs prior to arrival denies any loss of consciousness or hitting his head. His labs and physical exam was completed in the ED and he was cleared medically for mental health evaluation. There was no inpatient beds available for a voluntary inpatient treatment and he was agreeable to stay here awaiting bed availability. he was admitted to med/surg under hospitalist services. he has no history of etoh withdrawal but was placed on librium taper. He had no symptoms of withdrawal while hospitalized. he was eating and drinking and taking his medication without issue. He had no behavioral issues. mental health continued to follow and he was accepted at [facility] for inpatient treatment. He is being transported by [facility] department discharge discussed with Dr Rodriguez. Home Meds and New Rx's Prescriptions: Continued trazodone 50 mg tablet 50 mg PO HS RF: 0 olanzapine 10 mg tablet 10 mg PO HS RF: 0 fluoxetine 20 mg capsule 20 mg PO DAILY RF: 0 lamotrigine 25 mg tablet 25 mg PO DAILY RF: 0 Discharge Instructions Instructions: Depression (DC), Help Prevent Suicide (DC) Stand Alone Forms: Nursing Discharge Form Activity:: Activity as Tolerated Equipment/Supplies:: No Equipment Needed Diet:: As Tolerated Discharge Orders Discharge Orders: Discharge Order (Routine); Ordered 09/28/20 Ordered By: Alyse Enamorado DS: Summary Time Spent with Patient providing and/or coordinating discharge services: Less than 30 minutes Status at Discharge Functional status at discharge: independent ambulation Overall status at discharge: patient is not back to baseline Mental Status: mental status grossly normal Speech and Movement: speech and movement normal Mood: congruent mood Affect: blunted (flat but makes eye contact) Exam Const General: cooperative, healthy appearing, comfortable and no acute distress Nutritional Appearance: average body habitus Orientation: alert, awake and oriented x3 HENMT Head: normal to inspection, normocephalic and atraumatic Face and sinus: normal facial exam Mouth: oral mucosae normal Resp Effort & Inspection: normal respiratory effort Auscultation: clear to auscultation bilaterally Cardio Rate: regular rate Rhythm: regular rhythm GI Palpation: soft Auscultation: normal bowel sounds Skin General skin exam: no rashes or lesions noted Neuro General: patient alert, patient awake and patient oriented x3 Psych Appearance: grossly normal Mental Status: mental status grossly normal Speech and Movement: speech and movement normal Mood: congruent mood Affect: blunted (flat but makes eye contact) Attitude: cooperative Thought Process: normal Thought Content: normal DS: Data Vitals/I&O Vitals and I&O: Vital Signs Temperature 36.9 C 09/28/20 08:45 Temperature Source Tympanic 09/28/20 08:45 Pulse 90 09/28/20 08:45 Pulse Rhythm Regular 09/28/20 08:20 Respiratory Rate 16 09/28/20 08:45 Respiratory Effort Non-Labored 09/28/20 08:20 Respiratory Depth Normal 09/28/20 08:20 Respiratory Pattern Normal 09/28/20 08:20 Blood Pressure 124/79 09/28/20 08:45 Blood Pressure Position Sitting 09/25/20 13:54 Pulse Oximetry 96 09/28/20 08:45 Oxygen Delivery Method Room Air 09/28/20 08:45 Oxygen Flow Rate 0 09/28/20 08:45 Pain Level 0 09/28/20 08:45 Comment 09/25/20 19:27 Intake & Output 09/27/20 09/28/20 09/28/20 23:59 11:59 23:59 Intake Total 480 / 480 360 / 560 200 / 560 Output Total 700 / 700 Balance 480 / 480 -340 / -140 200 / -140 Intake: Oral 480 / 480 360 / 560 200 / 560 Output: Urine 700 / 700 Other: Urine Color Yellow Urine Appearance Clear Clear Urine Odor None Comment Patient voids in the toliet independently. Voiding Methods Toilet Toilet [facility] Social History Smoking/Tobacco Use Status: Current every day Tobacco Type: cigarettes Smoking risk assessment performed?: Yes Alcohol Intake: current Alcohol Intake frequency: 3 or more drinks per day Alcohol type: other Drug use: Daily Substance use type: marijuana Details: 6-12 twisted teas/day Do you feel safe at home: No Do you feel safe in your relationship?: No
--- NOTE | 2020-09-28 15:49 | NUR.NOTE ---
Nursing Note: 09/28/20 15:49 Edilma from [facility] called for [id number] handoff for this patient, this RN provided [id number] handoff. Number for unit is [phone]. Edilma requested patient be transported as soon as possible, his bed is available and they are ready for him. Charge nurse, Rodrigo, notified.
--- NOTE | 2020-09-28 16:02 | CMDISCH_ITS ---
- If Service Date Differs Date of service: 09/28/20 Time of Service: 16:22 LACE Index Scoring Tool - Questions: Length of Stay (in days): 3 Acuity (Admit via E.D.?): Yes E.D. Visits: 3 - Answers: Total Score: 9 Risk of Readmission: Low Risk Care Management Discharge Reason for Hospitalization: Depression/SI Discharge Plan: Marcos will transfer to [facility] for psychiatric stabilization. He will transport via [facility]'s department, coordinated by this underwriter mortgage loan. Patient/Family Education Needs: Review MH process and procedure, patient rights, transfer policy. Services Needed at Discharge: Psychiatric Facility ([facility] ), Transportation ([facility] ) - MH Services (Omit if N/A) Current MH Services: [facility] (Intake-pending assignment for Tx reportedly due to patient missing appointments. CARMEN CM through [facility]: Huyen Bellamy reviewed current interventions and barriers to stability including LENNY, relationship stressors and patient follow through.) - Disposition Disposition: [facility] via [facility]
[2020-09-28 16:10] VITALS: BP 128/75; PULSE 90; RESP 20; TEMP 36.6; O2SAT 98
[2020-09-28 16:15] VITALS: BP 133/79; PULSE 82; RESP 16; TEMP 36.6; O2SAT 98
== END 2020-09-28 16:37 | disposition short-term general hospital (02) ==
LOC: ER 13:27 → MS 18:42
PROVIDERS: Admitting Provider General Practice; Emergency Provider Registered Nurse Emergency; Visit Provider General Practice
DX: F32.9 Major depressive disorder, single episode, unspecified (principal); R45.851 Suicidal ideations; F12.90 Cannabis use, unspecified, uncomplicated; F10.10 Alcohol abuse, uncomplicated; Z20.822 Contact with and (suspected) exposure to COVID-19
CPT/HCPCS: 36415; 80048; 80307; 87635; 99285; 80320; 80329; 81003; 84443; 85025; 99217; 99222; 99225; 99284; G0378; J3490

== ENCOUNTER 2021-04-04 22:40 | Emergency (ER) | payer MEDICAID, SELFPAY ==
[2021-04-04 22:48] VITALS: BP 144/67; PULSE 76; RESP 18; TEMP 36.6; O2SAT 98
--- NOTE | 2021-04-04 23:00 | ED.GENADUL_ITS ---
Discharge Plan Disposition Patient Disposition: HOME Condition: Stable Discharge Details Clinical Impression: Muscle strain of left upper back Primary Care Provider: Unknown,Unknown ED Provider: Annette Cordova Home Meds and New Rx's Prescriptions: New cyclobenzaprine 10 mg tablet 10 mg PO TID PRN (Reason: muscle spasm) Qty: 10 RF: 0 Continued trazodone 50 mg tablet 50 mg PO HS RF: 0 olanzapine 10 mg tablet 10 mg PO HS RF: 0 fluoxetine 20 mg capsule 20 mg PO DAILY RF: 0 lamotrigine 25 mg tablet 25 mg PO DAILY RF: 0 Discharge Instructions Instructions: Acute Low Back Pain (ED), Lower Back Exercises (ED) Additional Instructions: Alternate ice and heat, you may try [id number]-[id number] lidocaine patches or topical IcyHot or similar. Please take Tylenol or Ibuprofen with food every 4-6 hours as needed for pain and swelling. Take the Flexeril up to 3 times daily as needed for muscle spasm. Follow up with primary care provider in 3-5 days. Return to ED sooner if any worsening or concerns. Increase oral fluids. Please continue to quarantine for pending COVID test. Stand Alone Forms: PENDING COVID-19 TESTING, Work Release Medical Decision Making 30-year-old male presents to the ER with chief complaint of scratchy throat, headache and back pain. 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 He reports that he has been feeling sick for a week and today has back started hurting. He denies any problems urinating or burning with urination. Denies any nausea vomiting diarrhea no shortness of breath no trouble breathing denies any chest pain. He is unvaccinated for Covid. Patient denies any loss of bowel or bladder control denies any saddle anesthesia. Neuro exam is within normal limits. At this time we will order a send out COVID test, Flexeril and lidocaine patch ordered. Patient discharged ambulatory in department without difficulty. Discussed quarantine procedures for pending COVID test. Flexeril to go given and prescription written. This text was generated using [employer] system, please disregard any oddities of phrase or misspellings. HPI General Mode of arrival: ambulatory . Date/Time Provider Initiated Documentation: 04/04/21 22:40 . Limitations to Documentation: no limitations . Information obtained by: patient and RN notes reviewed . HPI Narrative: 30-year-old male presents to the ER with chief complaint of scratchy throat, headache and back pain. 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 He reports that he has been feeling sick for a week and today has back started hurting. He denies any problems urinating or burning with urination. Denies any nausea vomiting diarrhea no shortness of breath no trouble breathing denies any chest pain. He is unvaccinated for Covid. Patient denies any loss of bowel or bladder control denies any saddle anesthesia. Neuro exam is within normal limits. Related Data Home Medications Medication Instructions Recorded Confirmed fluoxetine 20 mg PO DAILY 08/21/20 09/25/20 olanzapine 10 mg PO HS 08/21/20 09/25/20 trazodone 50 mg PO HS 08/21/20 09/25/20 lamotrigine 25 mg PO DAILY 09/26/20 09/26/20 cyclobenzaprine 10 mg PO TID PRN #10 tab 04/04/21 Previous Rx's Medication Instructions Recorded cyclobenzaprine 10 mg PO TID PRN #10 tab 04/04/21 Allergies Allergy/AdvReac Type Severity Reaction Status Date / Time No Known Allergies Allergy Unverified 09/25/20 14:00 General Stated Complaint: Orthopedic ANGELITO: 4 Review of Systems All systems reviewed & are unremarkable except as noted in HPI and below Musculoskeletal Musculoskeletal: Reports back pain, Denies myalgias and Reports stiffness PFSH All Active Problems (Updated 04/04/21 @ 23:11 by Annette Cordova) Muscle strain of left upper back (Acute) Alcohol use disorder (Acute) Depression with suicidal ideation (Acute) Social History Smoking/Tobacco Use Status: Current every day Tobacco Type: cigarettes Smoking risk assessment performed?: Yes Alcohol Intake: current Alcohol Intake frequency: 3 or more drinks per day Alcohol type: other Drug use: Daily Substance use type: marijuana Details: 6-12 twisted teas/day Do you feel safe at home: Yes Do you feel safe in your relationship?: Yes Exam Narrative Exam Narrative: Constitutional: Alert and oriented x3. Appears stated age. Normal body habitus. Head: Normocephalic, no trauma. Eyes: Pupils PERRL, Red reflex noted, EOM's intact. Eyelids symmetrical without lesions, discharge, or swelling. ENT: Bilateral TM's WNL, External ear normal to inspection, no mastoid TTP, swelling, or erythema, Nasal turbinates WNL, no nasal discharge. Normal dentition, Posterior pharynx WNL, no exudate. Chest: RRR, Normal S1, S2, distal pulses intact. Resp: Lungs clear to auscultation bilaterally, no wheezes, rales, or rhonchi. Abdomen: Soft, non-distended, Normoactive bowel sounds all 4 quads. Musculoskeletal: Normal gait, 5/5 strength to all four extremities. He does have some paraspinous muscle spasm palpated thoracic lesion. No midline tenderness, crepitus or step-off with palpation of the C, T, L-spine. Skin: No suspicious rashes or lesions. Capillary refill less than 2 sec. Neurologic: Cranial nerves II-XII intact. Alert and oriented x 3. Motor: No deficits noted. Sensory: Intact bilaterally all 4 extremities. Reflexes: DTR's intact bilaterally.. Intact dorsiflexion and pedal flexion, sensation equal bilaterally to lower extremities. Hematologic/Lymphatic: No ecchymosis, no lymphadenopathy. Course Vital Signs Vital signs: Vital Signs Temperature 36.6 C 04/04/21 22:48 Pulse 76 04/04/21 22:48 Respiratory Rate 18 04/04/21 22:48 Blood Pressure 144/67 H 04/04/21 22:48 Pulse Oximetry 98 04/04/21 22:48 Temperature 36.6 C 04/04/21 22:48 Temperature Source Temporal Artery Scan 04/04/21 22:48 Pulse 76 04/04/21 22:48 Respiratory Rate 18 04/04/21 22:48 Respiratory Effort 04/04/21 22:51 Blood Pressure 144/67 H 04/04/21 22:48 Blood Pressure Position Supine 04/04/21 22:48 Pulse Oximetry 98 04/04/21 22:48 Oxygen Delivery Method Room Air 04/04/21 22:48 Oxygen Flow Rate 0 04/04/21 22:48 Pain Level 8 04/04/21 22:48
[2021-04-04] MEDS: Lidocaine 5% Patch 1 PATCH (23:10)
[2021-04-04] MEDS: Cyclobenzaprine 10 MG TAB PO (23:10)
[2021-04-04] MEDS: Cyclobenzaprine 10 MG TAB, 3 TABS/BTL PO (23:15)
[2021-04-06 13:25] LABS: COVID-19 RT-PCR UVMMC Result Positive (Negative)
== END 2021-04-04 23:16 | disposition home or self-care (01) ==
PROVIDERS: Emergency Provider Registered Nurse Emergency
DX: U07.1 COVID-19 (principal); S29.012A Strain of muscle and tendon of back wall of thorax, initial encounter; X50.0XXA Overexertion from strenuous movement or load, initial encounter; Z28.3 Underimmunization status; F17.210 Nicotine dependence, cigarettes, uncomplicated
CPT/HCPCS: 99283; U0003

== ENCOUNTER 2023-06-10 04:00 | Emergency (ER) | payer MEDICAID, SELFPAY ==
[2023-06-10] VITALS (7 sets, daily range): BP systolic 87–133; BP diastolic 67–107; PULSE 68–171; RESP 12–21; O2SAT 100
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
[2023-06-10 04:15] LABS: Abs Immature Grans 0.03 10^3/uL (0.0-0.06); Absolute Basophil Count 0.08 10^3/uL (0.0-0.2); Absolute Lymphocyte Count 3.61 10^3/uL (1.2-3.4); Absolute Monocyte Count 0.55 10^3/uL (0.1-0.8); Basophils % 0.7; Eosinophils % 4.5; HCT 35.3 % (40.0-50.0); HGB 11.8 g/dL (13.5-17.5); Immature Grans % 0.3; Lymphocytes % 30.9; MCH 30.4 pg (27.0-33.0); MCHC 33.4 % (32.0-36.0); MCV 91 fL (80-95); MPV 10.1 fL (8.0-11.0); Monocytes % 4.7; Neutrophils % 58.9; Platelet Count 229 10^3/uL (130-400); RBC 3.88 10^6/uL (4.36-5.78); RDW 12.4 % (11.8-14.1); RDW-SD 40.8 fL; WBC 11.68 10^3/uL (4.4-10.8)
[2023-06-10 04:20] LABS: Absolute Eosinophil Count 0.53 10^3/uL (0.0-0.7); Absolute Neutrophil Count 6.88 10^3/uL (1.2-6.7)
[2023-06-10] MEDS: fentaNYL 100 MCG/2 ML VIAL ×2 (04:20→04:30)
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
[2023-06-10 04:38] LABS: ALT 20 U/L (16-63); AST 19 U/L (15-37); Albumin 3.4 g/dL (3.4-5.0); Alkaline Phosphatase 43 U/L (46-116); Amylase 45 U/L (25-115); Anion Gap 9.5 mmol/L (3-11); BUN 16 mg/dL (7-18); Bilirubin, Total 0.4 mg/dL (0.2-1.0); CO2 25.5 mmol/L (21.0-32.0); Calcium 8.1 mg/dL (8.5-10.1); Chloride 105 mmol/L (98-107); ETHANOL BLOOD < 3.0 mg/dL (<10); Estimated GFR 102.55 (mL/min/1.73m2); Glucose 109 mg/dL (74-106); Lipase 40 U/L (16-77); Magnesium 2.1 mg/dL (1.8-2.4); Potassium 3.6 mmol/L (3.5-5.1); Sodium 140 mmol/L (136-145); Total Protein 6.2 g/dL (6.4-8.2); Troponin I < 50 ng/L (< or =60)
[2023-06-10] MEDS: Omnipaque 350 MG/ML 100 ML BTL IJ (04:41)
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
[2023-06-10] MEDS: Normal Saline - Diluent 50 ML VIAL IJ (04:42)
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
--- NOTE | 2023-06-10 05:08 | NUR.NOTE ---
Nursing Note: Pt received x1 unit blood [id number]
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
== END 2023-06-10 05:01 | disposition short-term general hospital (02) ==
PROVIDERS: Emergency Provider Student in an Organized Health Care Education/Training Program
DX: S36.116A Major laceration of liver, initial encounter (principal); S37.062A Major laceration of left kidney, initial encounter; T79.4XXA Traumatic shock, initial encounter; S36.898A Other injury of other intra-abdominal organs, initial encounter; X99.1XXA Assault by knife, initial encounter; Y93.89 Activity, other specified; Y92.810 Car as the place of occurrence of the external cause
CPT/HCPCS: 00123; 36430; 74177; 80053; 82962; 83690; 86850; 86900; 86901; 86920; 99285; 71045; 71260; 80320; 82150; 83735; 84484; 85025; J3010; J3490; P9016

== ENCOUNTER 2023-06-19 07:33 | Emergency (ER) | payer MEDICAID, SELFPAY ==
[2023-06-19 07:40] VITALS: BP 151/79; PULSE 105; RESP 18; TEMP 36.9; O2SAT 99
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
[2023-06-19 08:19] LABS: Abs Immature Grans 0.22 10^3/uL (0.0-0.06); Absolute Basophil Count 0.06 10^3/uL (0.0-0.2); Absolute Eosinophil Count 0.46 10^3/uL (0.0-0.7); Absolute Lymphocyte Count 1.65 10^3/uL (1.2-3.4); Absolute Monocyte Count 0.83 10^3/uL (0.1-0.8); Absolute Neutrophil Count 5.82 10^3/uL (1.2-6.7); Basophils % 0.7; Eosinophils % 5.1; HCT 25.4 % (40.0-50.0); HGB 8.5 g/dL (13.5-17.5); Immature Grans % 2.4; Lymphocytes % 18.3; MCH 30.6 pg (27.0-33.0); MCHC 33.5 % (32.0-36.0); MCV 91 fL (80-95); MPV 8.7 fL (8.0-11.0); Monocytes % 9.2; Neutrophils % 64.3; Platelet Count 462 10^3/uL (130-400); RBC 2.78 10^6/uL (4.36-5.78); RDW 13.4 % (11.8-14.1); WBC 9.04 10^3/uL (4.4-10.8)
[2023-06-19] MEDS: Lactated Ringers 500 ML IV ×2 (08:25→10:06)
[2023-06-19 08:46] LABS: ALT 106 U/L (16-63); AST 93 U/L (15-37); Albumin 2.7 g/dL (3.4-5.0); Alkaline Phosphatase 203 U/L (46-116); Anion Gap 8.7 mmol/L (3-11); BUN 12 mg/dL (7-18); Bilirubin, Total 0.7 mg/dL (0.2-1.0); CO2 26.3 mmol/L (21.0-32.0); CREATININE 0.7 mg/dL (0.70-1.30); Calcium 8.1 mg/dL (8.5-10.1); Chloride 102 mmol/L (98-107); Estimated GFR 125.55 (mL/min/1.73m2); Glucose 109 mg/dL (74-106); Magnesium 1.9 mg/dL (1.8-2.4); Potassium 3.8 mmol/L (3.5-5.1); Sodium 137 mmol/L (136-145); Total Protein 6.6 g/dL (6.4-8.2)
[2023-06-19 08:51] VITALS: BP 128/65; RESP 16; O2SAT 98
[2023-06-19] MEDS: Omnipaque 350 MG/ML 100 ML BTL IJ (09:13)
[2023-06-19] MEDS: Normal Saline - Diluent 50 ML VIAL IJ (09:13)
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
[2023-06-19 10:10] LABS: Bilirubin Negative (Negative); Blood Negative (Negative); Clarity Clear (Clear); Glucose Negative (Negative); Ketones Negative (Negative); Leukocyte Esterase Negative (Negative); Nitrite Negative (Negative); Urobilinogen >=8.0 mg/dL (Up to 0.2)
[2023-06-19 10:36] VITALS: BP 108/53; PULSE 90; RESP 16; O2SAT 98
[2023-06-19] MEDS: Normal Saline Flush 10 ML SYR IVP (10:38)
[2023-06-19 12:11] VITALS: BP 121/70; PULSE 87; RESP 16; O2SAT 99
== END 2023-06-19 12:13 | disposition home or self-care (01) ==
PROVIDERS: Emergency Provider Student in an Organized Health Care Education/Training Program
DX: G89.18 Other acute postprocedural pain (principal); S36.113D Laceration of liver, unspecified degree, subsequent encounter; S37.032D Laceration of left kidney, unspecified degree, subsequent encounter; F17.210 Nicotine dependence, cigarettes, uncomplicated; X99.9XXD Assault by unspecified sharp object, subsequent encounter
CPT/HCPCS: 36415; 74177; 80053; 96360; 96361; 99285; 71260; 81003; 83735; 85025; 99284; J3490

== ENCOUNTER 2023-06-27 14:52 | Outpatient (REF) | payer MEDICAID, SELFPAY ==
[2023-06-27 15:00] LABS: Abs Immature Grans 0.06 10^3/uL (0.0-0.06); Absolute Basophil Count 0.11 10^3/uL (0.0-0.2); Absolute Eosinophil Count 0.39 10^3/uL (0.0-0.7); Absolute Lymphocyte Count 2.15 10^3/uL (1.2-3.4); Absolute Monocyte Count 0.47 10^3/uL (0.1-0.8); Absolute Neutrophil Count 7.27 10^3/uL (1.2-6.7); Basophils % 1.1; Eosinophils % 3.7; HCT 35.1 % (40.0-50.0); HGB 10.9 g/dL (13.5-17.5); Immature Grans % 0.6; Lymphocytes % 20.6; MCH 29.9 pg (27.0-33.0); MCHC 31.1 % (32.0-36.0); MCV 96 fL (80-95); MPV 8.7 fL (8.0-11.0); Monocytes % 4.5; Neutrophils % 69.5; RBC 3.64 10^6/uL (4.36-5.78); RDW 14.2 % (11.8-14.1); WBC 10.45 10^3/uL (4.4-10.8)
[2023-06-27 15:21] LABS: Diff Comment PLT Morph Reviewed; RBC Morphology Normal
[2023-06-27 15:22] LABS: Bacteria Negative HPF (Negative); C & S Indicated? No; Casts Negative LPF (Negative); Crystals Negative HPF (Negative); Epithelial Cells Rare HPF (Negative); Mucus Negative (Negative); Platelet Count 723 10^3/uL (130-400); RBC 0-2 HPF (0-2); WBC 0-2 HPF (0-5)
[2023-06-27 15:31] LABS: Iron 48 ug/dL (65-175)
[2023-06-27 15:38] LABS: Ferritin 551 ng/mL (26-388)
== END 2023-06-27 14:53 | disposition home or self-care (01) ==
LOC: NCHCN 14:52
PROVIDERS: PCP Student in an Organized Health Care Education/Training Program; Visit Provider Student in an Organized Health Care Education/Training Program
DX: D62 Acute posthemorrhagic anemia (principal); Z87.448 Personal history of other diseases of urinary system
CPT/HCPCS: 81015; 82728; 83540; 85025

== ENCOUNTER → 2023-07-09 13:00 | Outpatient (CLI) | payer MEDICAID, SELFPAY ==
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
== END ==
PROVIDERS: PCP Student in an Organized Health Care Education/Training Program; Visit Provider Student in an Organized Health Care Education/Training Program
DX: S37.032D Laceration of left kidney, unspecified degree, subsequent encounter (principal); X58.XXXD Exposure to other specified factors, subsequent encounter; T14.8XXD Other injury of unspecified body region, subsequent encounter
CPT/HCPCS: 71046

== ENCOUNTER 2023-07-13 19:49 | Emergency (ER) | payer MEDICAID, SELFPAY ==
[2023-07-13 19:53] VITALS: BP 135/88; PULSE 77; RESP 16; TEMP 36.8; O2SAT 99
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
[2023-07-13] MEDS: Acetaminophen 500 MG TAB 1000 MG PO (20:28)
[2023-07-13] MEDS: Ketorolac 10 MG TAB PO (20:29)
[2023-07-13] MEDS: Lidocaine 5% Patch 2 PATCH TP (20:29)
[2023-07-13] MEDS: Cyclobenzaprine 10 MG TAB PO (20:29)
[2023-07-13 20:53] LABS: Abs Immature Grans 0.02 10^3/uL (0.0-0.06); Absolute Basophil Count 0.07 10^3/uL (0.0-0.2); Absolute Eosinophil Count 0.41 10^3/uL (0.0-0.7); Absolute Lymphocyte Count 3.02 10^3/uL (1.2-3.4); Absolute Monocyte Count 0.39 10^3/uL (0.1-0.8); Absolute Neutrophil Count 3.24 10^3/uL (1.2-6.7); Eosinophils % 5.7; HCT 37.2 % (40.0-50.0); HGB 12.3 g/dL (13.5-17.5); Immature Grans % 0.3; Lymphocytes % 42.2; MCHC 33.1 % (32.0-36.0); MCV 91 fL (80-95); MPV 9.4 fL (8.0-11.0); Monocytes % 5.5; Neutrophils % 45.3; Platelet Count 237 10^3/uL (130-400); RDW 13.5 % (11.8-14.1); RDW-SD 44.9 fL; WBC 7.15 10^3/uL (4.4-10.8)
[2023-07-13 20:57] LABS: Bilirubin Negative (Negative); Blood Negative (Negative); Clarity Clear (Clear); Glucose Negative (Negative); Ketones Negative (Negative); Leukocyte Esterase Negative (Negative); Nitrite Negative (Negative); Urobilinogen 0.2 mg/dL (Up to 0.2); pH 6.5 (5-8)
[2023-07-13 21:06] LABS: ETHANOL BLOOD < 3.0 mg/dL (<10)
[2023-07-13 21:09] LABS: *AMPHETAMINES SCREEN URINE Negative (Negative); *BARBITURATES SCREEN URINE Negative (Negative); *BENZODIAZEPINES SCREEN URINE Negative (Negative); Cannabinoids THC Positive (Negative); Cocaine Screen,Urine Positive (Negative); METHADONE URINE SCREEN Negative (Negative); OPIATES URINE SCREEN Negative (Negative); Tricyclic Antidepressants Negative (Negative)
[2023-07-13 21:17] LABS: ALT 32 U/L (16-63); AST 17 U/L (15-37); Albumin 3.7 g/dL (3.4-5.0); Alkaline Phosphatase 96 U/L (46-116); Anion Gap 10.8 mmol/L (3-11); BUN 6 mg/dL (7-18); Bilirubin, Direct 0.1 mg/dL (0.0-0.2); Bilirubin, Total 0.4 mg/dL (0.2-1.0); CO2 27.2 mmol/L (21.0-32.0); CREATININE 0.7 mg/dL (0.70-1.30); Calcium 8.4 mg/dL (8.5-10.1); Chloride 106 mmol/L (98-107); Estimated GFR 125.55 (mL/min/1.73m2); Glucose 95 mg/dL (74-106); Lipase 84 U/L (16-77); Potassium 3.3 mmol/L (3.5-5.1); Sodium 144 mmol/L (136-145); TSH (W/Ref FT4) 0.94 uIU/mL (0.36-3.74); Total Protein 7.3 g/dL (6.4-8.2)
[2023-07-13 21:21] LABS: Salicylate < 2.8 mg/dL (<2.8)
[2023-07-13 21:25] LABS: Acetaminophen < 2 ug/mL (10-30)
[2023-07-13 21:27] LABS: COVID-19 PCR Negative (Negative); Influenza A PCR Negative (Negative); Influenza B PCR Negative (Negative); RSV PCR Negative (Negative)
[2023-07-13 21:38] LABS: Source Nasopharynx
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
--- NOTE | 2023-07-13 23:15 | NUR.NOTE ---
Patient noted with left ankle bracelet.
[2023-07-13] MEDS: Potassium Chloride 20 MEQ TABCR 40 MEQ PO (23:30)
--- NOTE | 2023-07-14 11:05 | PSYCO_ITS ---
Date of service: 07/14/23 Time of Service: 10:30 Summary Note PSYCHIATRY CONSULT NOTE: INITIAL EVALUATION Name:?Marcos Babcock :?1990 Location of the patient:?[facility] ED Consulting Array Clinician:?Kiara You Location of the clinician:?[place], [place] SUMMARY 32-year-old male, with history of bipolar disorder, current cocaine/cannab is/alcohol/opioid use, history of suicide attempt(s), violence, disruptive behavior, poor self-care, self-referred via walk-in for suicidal ideation, substance use. Patient is at elevated risk of danger to self, danger to others, danger due to grave disability/poor self-care. Patient presently meets criteria for inpatient psychiatric hospitalization. Working Diagnoses:?F12.10 Cannabis abuse; uncomplicated; F15.10 Other stimulant abuse; uncomplicated; F31.9 Bipolar disorder; unspecified Rule Out Diagnoses:? CPT Codes:?02197 - Psychiatric Diagnostic Evaluation with Medical Services PLAN Disposition:?Voluntary admission when medically stable. Re-consult psychiatry/screening if patient requests discharge. ? Observation level ? Psychiatric 1:1 needed??Continue psych 1:1 Work-up:? Pharmacological:? * Initiate gabapentin 600 mg three times a day for substance use disorder and can be effective for anxiety and pain * Is patient psychotic? - No; * Informed consent: Discussed risks and benefits of the above recommended psychiatric medications with patient, who demonstrated understanding and gave express informed consent to take the above medications as documented. Follow up needed while in the hospital??Q24h Other:? * Please obtain baseline EKG to monitor for QTc prolongation, cardiac arrhythmias, and torsades de pointes. Would maintain potassium above 4.0 and magnesium above 2.0 * If questions arise about the psychiatric care of this patient, please call the [facility]?to request a follow-up consult. ?Please do not contact me individually through the EMR chat as I am not?regularly logged on to?this system. The psychiatrist for the follow-up visit may be a different psychiatrist Discussed plan with onsite steam clothes press operator:?Yes - Mylene MORALES HISTORY Requested by:?Emergency medicine colleagues, Sources of information:?Patient, medical record History of Present Illness:? 32-year-old male, single, unemployed, with history of bipolar disorder, current cocaine/cannabis/alcohol/opioid use, history of suicide attempt(s), violence, di sruptive behavior, poor self-care, self-referred via walk-in for suicidal ideation, substance use. UDS positive for cannabis/cocaine, Alcohol undetectable. In the hospital, patient has been in behavioral control with no reported issues. Patient is a 32 year old male who resides is currently homeless in [place]. He has a past psychiatric history significant for polysubstance use disorder (cannabis, stimulants, opioids, alcohol), no history of complicated withdrawal seizures, bipolar disorder, anxiety, prior inpatient psychiatrics hospitalizations (last admission eight months ago), prior suicide attempts (last attempt one month after intentional overdose on Fentanyl, no history of non suicidal self injurious behavior, and prior chemical dependency treatment (last program several years ago). He presented to the emergency room with suicidal ideations and was concerned that he could not keep himself safe. Psychiatry was consulted for evaluation. On psychiatric interview, patient describes worsening depressive symptoms over the last couple of months and has struggled with depression since the age of 16. He describes symptoms of hopelessness, worthlessness, perceived sense of burdensomeness. He describes symptoms of amotivation, anhedonia, and poor sleep over the last three weeks. He reports last night he was able to sleep for the first time in three weeks and reports that he was not elevated in his mood during the last three weeks. Patient describes worsening anxiety including persistently worrying, having a hard time controlling the worries. He describes ongoing suicidal ideations with plan to intentionally overdose.. Collateral Contacted No-- patient meets criteria for inpatient hospitalization. PSYCHIATRIC REVIEW OF SYSTEMS (symptoms in past two weeks) Pertinent Positives:?depressed mood/hopelessness/insomnia/anxiety/mood swings/decreased need for sleep Pertinent Negatives:?no anhedonia/no irritability/no aggressive behavior/no agitation/no command hallucinations/no panic attacks/no impulsivity PSYCHIATRIC HISTORY Past Psychiatric Diagnoses/Problems:?bipolar disorder, polysubstance use disorder (opioids, stimulants, cannabis, alcohol) Psychiatric Treatment:?Hospitalizations:?psychiatric hospitalization ???Other Past treatment:?medication management ???Current treatment:?no reported current psychiatric treatment Drug/Alcohol History ???Current excessive drug/alcohol use:?cocaine, cannabis, alcohol, opioid ???Past excessive drug/alcohol use:?none ???Drug/alcohol use comment:?Treatment:?rehab ???Withdrawal symptoms:?none ???UDS results:?UDS positive for cannabis/cocaine ???BAL results:?undetectable ???Active withdrawal Protocol:? Stressors:?housing instability, treatment non-adherence, exacerbation of mental illness Trauma:? Family Psychiatric History:?none HEALTH HISTORY Medical Problems:? Is patient linked with PCP??yes Psychiatric and other clinically relevant medications:? Allergies/Adverse Medication Reactions:?NKDA Physical Findings:?no clinically significant abnormal lab values DEMOGRAPHICS/SOCIAL HISTORY Gender:?male Living Situation:?currently homeless Relationship Status:?single Education:?high school/GED Employment:?unemployed Social Support Network:?none Legal History:?on probation, violent charge, non-violent charge, assault, DUI, past incarceration, domestic assault charges are pending Special Considerations:?none RISK EVALUATION Suicidality/self-injury:?Yes suicidal ideation, suicide attempt(s) within past 6 months Primary Suicide Screening (PSS-3) 1. In the past two weeks, have you felt down, depressed, or hopeless??YES 2. In the past two weeks, have you had thoughts of killing yourself??YES 3. In your lifetime, have you ever attempted to kill yourself??YES 3a. Within the past 6 months??YES ESS-6 Secondary Screen ( If #2 is yes or #3a is yes within the past 6 months, then complete secondary screen) 1. Positive on PSS-3 questions 2 & 3 ? active suicidal ideation with a past attempt??YES 2. Have you been thinking about how you might kill yourself??YES 3. Have you had some intention of acting on your thoughts??YES 4. Lifetime psychiatric hospitalization??NO 5. Has drinking or substance abuse ever been a problem for you??YES 6. Current irritability, agitation, or aggression??NO PSS-3/ESS-6 Secondary Screen Scoring:?Severe PSS-3/ESS-6 Scoring Interpretation Legend PSS-3 screen incomplete [Blank PSS-3 questions #2 OR #3a] PSS-3 screen unable to assess [Unable to Assess responses on PSS-3 questions #2 AND #3a] Mild [No current attempt AND No suicide plan or intent AND Score (0-2)] Moderate [No current attempt AND Active suicidal ideation with plan or intent (not both) OR Score (3-4)] Severe [Current attempt OR Suicide plan and intent OR Score (5-6)] HI/Violence/Property Destruction:?Yes Access to Firearms:?none Grave disability/Poor self-care:?yes poor self-care, medical neglect Psychosis:?No Protective Factors:? High Utilization Criteria:?None Signs of Secondary Gain:?None MENTAL STATUS EXAM Appearance and Attire:?dressed in hospital attire Psychomotor agitation:?calm kinetics Attitude and behavior:?calm, cooperative Speech:?spontaneous, fluent, normal volume Mood:?profoundly dysphoric Affect:?congruent with mood Thought Process:?no loosening of associations and concrete in thought processes Thought content:?devoid of delusions and paranoia Perception:?did not appear to be responding to internal stimuli Intelligence:? Average Abstraction:? Poor reasoning Language:? No abnormality Orientation:? Oriented x 4 Sensorium:? Normal Knowledge:? Appropriate for education and socioeconomic status Memory:? Impaired to Executive function Insight:?poor insight Judgment:?poor judgment SUMMARY RISK ASSESSMENT Current Suicide Risk Elevated??PSS-3/ESS-6 Scoring: Severe? Current Violence Risk Elevated??Yes Issues with ability to care for self.?Yes, decline in activities of daily living SAFE-T Risk Factors Suicidal Behavior:? ? History of prior suicide attempts ??Aborted suicide attempt ? History of prior SI ??Self-injurious behavior Current/Past Psychiatric Disorders:? ?Mood disorders ??Psychotic Disorders ??History of inpatient hospitalization ??ADHD ??TBI ??PTSD ??Cluster B personality disorders ??Conduct disorders ??Medical comorbidity ??Recent onset of illness Current/Past Substance Use:? ? Active ETOH/Opiates/Other Substance abuse ??History of ETOH/Opiates/Other Substance abuse ??Active withdrawal or risk of withdrawal from ETOH/Opiate Dixon Symptoms:? ??Anhedonia ??Impulsivity ? Hopelessness ? Anxiety/Panic ? Global insomnia (difficulty falling asleep, maintaining sleep, or falling back to sleep) ??Command Hallucinations Family History Risk Factors:? ??Suicide Attempts ??Psychiatric disorders requiring hospitalization ??Suicidal Behavior Precipitants/Stressors/Interpersonal/Triggers:? ??Events leading to humiliation, shame, or despair ??Family turmoil/chaos ??Chronic physical pain or other acute medical problems ??Perceived burden on others ??Ongoing medical illness ??History of physical or sexual abuse ??Legal problems ??Intoxication ??Social isolation ??Inadequate social support Treatment:? ??Medication management ??Therapy ??Satisfied with current treatment ??Recent discharge from a psychiatric hospital ??Recent change in provider or treatment ??Access to firearms/ammunition Protective Factors Internal:? ??Ability to cope with stress ??Identifies reasons for living ??Frustration tolerance ??Nondenominational beliefs ??Fear of or the actual act of killing self External:? ??Cultural factors against suicide ??Beloved pets ??Engaged in work or school ??Spiritual and/or moral attitudes against suicide ??Supportive social network of family or friends ??Responsibility to children/others ??Positive therapeutic relationships Kiara You DO
--- NOTE | 2023-07-14 13:26 | PDOC.MHCN ---
Date of service: 07/13/23 Time of Service: 13:26 PHQ-9 Over the last 2 weeks, how often have you been bothered by any of the following problems? 1. Little interest or pleasure in doing things: nearly every day 2. Feeling down, depressed, or hopeless: nearly every day 3. Trouble falling or staying asleep, or sleeping too much: nearly every day 4. Feeling tired or having little energy: nearly every day 5. Poor appetite or overeating: nearly every day 6. Feeling bad about yourself - or that you are a failure or have let yourself and your family down: nearly every day 7. Trouble concentrating on things, such as reading the newspaper or watching television: nearly every day 8. Moving or speaking so slowly that other people could have noticed? - Or the opposite - being so fidgety or restless that you have been moving around a lot more than usual: nearly every day 9. Thoughts that you would be better off or of hurting yourself in some way: nearly every day Total score: 27 If you checked off any problems, how difficult have these problems made it for you to do your work, take care of things at home, or get along with other people?: extremely difficult Source: Developed by Drs. Luis Carlos Brandon, Veronica Aggarwal, Vinicius Santillan and colleagues, with an educational joss from [employer]. Suicide Severity Rate CSSRS Have you wished you were or wished you could go to sleep and not wake up?: Yes Have you actually had any thoughts of killing yourself?: Yes CSSRS2 Have you been thinking about how you might do this?: Yes Have you had these thoughts and had some intention of acting on them?: Yes Have you started to work out or worked out the details of how to kill yourself? Do you intend to carry out this plan?: Yes CSSRS3 Have you ever done anything, started to do anything or prepared to do anything to end your life?: Yes CSSRS4 Was this within the past three months?: Yes Screening Score Total Score: 8 Screening: Positive Mental Health Emergency Note Release [facility] release signed:: Yes Reason for Visit Client presented to with feeling overwhelmed and endorsing SI. Client presented to Clinician Mariza previously endorsing SI and HI, however, was not endorsing HI at this time. Client is known to [facility], and client no showed last appointment on 07/01. [facility] sent a letter to client on 07/07. Client reported being hospitalized at [facility] 3 times with the last time being 2 years ago. Client reported going to [facility] when he was 18 years old. In the last 2 weeks has the pt presented for ES prior to today?: Unknown Client Information Client is: Substance use Well Housed: No,status: Homeless Non Suicidal Self Injury Current: No History: No Safety Risk/Harm to Self or Others Current Ideation to Harm Self or Others: Yes to self. Intent: yes, has intent. Plan: yes,has a plan. History of suicide attempt: yes,history of suicide attempt reported. Details of previous suicide attempt: The client did not give details. Risk: Does risk to harm exist?: yes. Access to means: Yes. Types of Means: Medication and Other. Details: Client stated, when I leave this hospital either this or care home this means by suicide. One example the client gave to by suicide was via the police. . Counseling provided: Yes Risk: High Risk Duty to warn indicated: No Asssessment/Mental Status Appearance: Well groomed Attitude: Cooperative Behavior: Unremarkable and Other (intense stare) Speech: Normal Affect: Flat and Cogruent with mood Mood: Sad, Stressed, Depressed and Anxious Thought process: Goal directed Hallucinations: No Delusions: No Attention: Unremarkable Perception: Not impaired Orientation: Fully orientated Memory: Intact Insight: Good Judgement: Fair Neurovegetative Symptoms Sleep: Decrease Appetitie: Disordered (Client states he will starve himself, and then gorge on food.) Interests: Decrease Energy: Decrease Libido: Not applicable Substance Use: Do you use nicotine?: Yes Have you used substances in the last 7 days?: yes, Unknown however, reported recent black outs. Additional Issues: Assaultive/Threatening Behavior: No Client engaged in active self harm w/weapon: No Threatening to run away: No Child reported abuse/neglect: No Voluntarily presenting for services: Yes Domestic violence is a concern: No Extreme Psychosis or extreme behavior is present: No Impression Previous attempts of suicide are not clear at this time. This clinician completed all screening tools including the CSSRS. However, this clinician is not CAMS certified so this treatment could not be completed. Based on the client reports of active SI with intent and plan lesser restrictive options were not considered. Client is a 32-year-old single male who uses he/him pronouns. All unrepresented categories were honored during this assessment. Client presented in the ED in paper scrubs with a shaved head and a stanley. His eye contact was intense. Client was engaged in full assessment with honest and open answers. Client reports going to the ED due to feelings of not being able to stay safe. Client reports he cannot partake in raising his own children at this time. Client reports he has a inconsistent eating pattern i.e. starving myself, gorging, starving myself. Client stated, when I leave this hospital either this or care home this means by suicide. One example the client gave to by suicide was via the police. Under the supervision of ESC Erika present via [facility]. Plan/Disposition Recommended Disposition: Hospitalization (Referrals sent) facilities contacted. Plan: Client will remain at [facility] with daily assessment until placed. Person reported agreement to plan: Yes Reports/communication Outcome discussed with: ED/Personnel
--- NOTE | 2023-07-14 14:00 | PDOC.MHPN2 ---
Date of service: 07/14/23 Time of Service: 14:02 Mental Health Emergency Note Release [facility] release signed:: Yes Reason for Visit Client presented to ED om 4.28.24 feeling overwhelmed and endorsing SI. Client presented to Clinician Mariza previously endorsing SI and HI, however, was not endorsing HI at this time. Client is known to [facility], and client no showed last appointment on 07/01. [facility] sent a letter to client on 07/07. Client reported being hospitalized at [facility] times with the last time being 2 years ago. [facility] he [facility] 18 [facility] old. In the last 2 weeks has the pt presented for ES prior to today?: Unknown Client Information Client is: Substance use Impression Previous attempts of suicide are not clear at this time. This clinician completed all screening tools including the CSSRS. However, this clinician is not CAMS certified so this treatment could not be completed. Based on the client reports of active SI with intent and plan lesser restrictive options were not considered. Client is a 32-year-old single male who uses he/him pronouns. All unrepresented categories were honored during this assessment. The client presented just waking up from sleeping. He appeared a little disheveled but appropriate. He reported sleeping last night however, did not find it to be restful sleep. He is about to order lunch. The client presents with a flat affect and good eye contact. He is cooperative and engaged. The client inquired about this clinician outreaching to his PO regarding his current situation. The client is still seeking voluntary placement. Plan/Disposition Recommended Disposition: Hospitalization facilities contacted. Plan: The client will remain at [facility] pending placement or his ability to safety plan back to the community. Person reported agreement to plan: Yes Facilities contacted if Applicable [facility] Not accepted, Other (Still reviewing. ) [facility] Not accepted, No bed available [facility] Not accepted, Only accepting in house referrals, [facility] Not accepted, [facility] Reports/communication Outcome discussed with: ED/Personnel
--- NOTE | 2023-07-14 16:22 | W.EDPROG ---
Date of service: 07/14/23 Time of Service: 16:22 Medical Decision Making Care was signed out by Dr. Perdomo, please see her documentation regarding ED course. Plan at signout was to follow-up on inpatient psychiatric placement. I received call from Petra Kwon at [facility], discussed ED course, addressed questions, she will accept the patient in transfer. Quality:[facility] Health Related Social Needs: No Data to Display Sign Out Sign Out Data: Sign Out Comment: Pending bed search for in-patient hospitalization for suicidal ideation Last updated by Lionel Cordova PA at 07/13/23 22:36 Sign Out Comment: SI, medically cleared, voluntary but likely meets EE criteria. Pending placement, telepsych. Last updated by Shy Perdomo MD at 07/14/23 06:19 Discharge Plan Disposition Patient Disposition: Psychiatric Hospital/Unit Specific Psychiatric Facility: [facility] Condition: Serious Discharge Details Chief Complaint: Suicide-Atempt Clinical Impression: Suicide ideation Primary Care Provider: Andry Haddad ED Provider: Blaine Thompson Home Meds and New Rx's Prescriptions: No Action cyclobenzaprine 10 mg tablet 10 mg PO Q8H Hold Instructions: patient state he is no longer on this medication Patient Comments: TAKE ONE TABLET BY MOUTH THREE TIMES A DAY NEEDED FOR MUSCLE SPASMS hydromorphone 2 mg tablet 2 mg PO Q8H Patient Comments: TAKE 1 TABLET BY MOUTH EVERY 6 HOURS NEEDED FOR PAIN FOR ONE DAY, THEN TAKE ONE TABLET BY MOUTH EVERY 8 HOURS NEEDED FOR 1 DAY gabapentin 300 mg capsule 300 mg PO Q8H Patient Comments: TAKE ONE CAPSULE BY MOUTH THREE TIMES A DAY
[2023-07-14 17:06] VITALS: BP 126/85; PULSE 62; RESP 18; TEMP 36.6; O2SAT 96
--- NOTE | 2023-07-14 17:35 | CMSP_ITS ---
Date of service: 07/14/23 Time of Service: 17:36 Care Management Safety Plan Status Status: Voluntary Reason for Wait Reason for Wait: Inpatient Admission Safety Plan Safety Plan: VOLUNTARY FOR INPATIENT PSYCHIATRIC STABILIZATION.? Patient is appropriate in all interactions since arriving at [facility]; Pt has demonstrated appropriate coping and communication skills, has articulated his or her needs and concerns and is fully engaged during staff interactions. Safety plan has been established with patient, and care team, to adhere to patient goals, identify restrictions based on behavioral status, address nutrition, and determine allowed personal belongings, tools for hygiene and personal care. Determine level of activity including ambulation, level of supervision, visitors, and determine privileges based on behaviors and level of engagement by pt. SAFETY PLAN: 1. Will remain on suicide precautions, in paper clothes 2. Will remain in Zone B under direct supervision of one-on-one staff at all times provided by [employer]; TONY, [employer] insurance loss assessor. 3. May have paper cups, plates, finger foods as well as a cardboard spoon with which to eat meals. 4. Follow [facility] Management of the Admitted Behavioral Health Patient policy. 5. Shower available in Zone B without restriction. 6. Personal belongings-soft items permitted at RN discretion. 7. Visitors- at RN discretion. intelligence officer basic, Keysha Elina, phone #[phone]. May call and/or visit. 8. Activities: soft cart items approved per RN discretion. 9.? Bathroom available in Zone B without restriction. 10. Phone: incoming/outgoing calls limited to [facility] cordless phone at RN discretion. Due to VOLUNTARY status, if patient wishes to leave [facility], staff will contact [facility] Crisis Screener ([phone]) and Web Ui Developer ([phone]) as soon as possible. In the event of elopement, notify [place] [employer] ([phone]). Patient is currently voluntarily at [facility] and seeking inpatient admission when a bed becomes available. [facility] Frontline Presidential Support Specialist will continue seeking placement. Please contact the Web Ui Developer ([phone]) and [facility] Presidential Support Specialist ([phone]) for any needed changes in the Safety Plan. Safety plan has been provided to interdepartmental care team.
--- NOTE | 2023-07-14 17:35 | PDOC.CMSAFE ---
Date of service: 07/14/23 Time of Service: 17:36 Care Management Safety Plan Status Status: Voluntary Reason for Wait Reason for Wait: Inpatient Admission Safety Plan Safety Plan: VOLUNTARY FOR INPATIENT PSYCHIATRIC STABILIZATION.? Patient is appropriate in all interactions since arriving at [facility]; Pt has demonstrated appropriate coping and communication skills, has articulated his or her needs and concerns and is fully engaged during staff interactions. Safety plan has been established with patient, and care team, to adhere to patient goals, identify restrictions based on behavioral status, address nutrition, and determine allowed personal belongings, tools for hygiene and personal care. Determine level of activity including ambulation, level of supervision, visitors, and determine privileges based on behaviors and level of engagement by pt. SAFETY PLAN: 1. Will remain on suicide precautions, in paper clothes 2. Will remain in Zone B under direct supervision of one-on-one staff at all times provided by [employer]; TONY, PRIMARY [place] TEACHER medical information specialist. 3. May have paper cups, plates, finger foods as well as a cardboard spoon with which to eat meals. 4. Follow [facility] Management of the Admitted Behavioral Health Patient policy. 5. Shower available in Zone B without restriction. 6. Personal belongings-soft items permitted at RN discretion. 7. Visitors- at RN discretion. fire prevention officer, Keysha Elina, phone #[phone]. May call and/or visit. 8. Activities: soft cart items approved per RN discretion. 9.? Bathroom available in Zone B without restriction. 10. Phone: incoming/outgoing calls limited to [facility] cordless phone at RN discretion. Due to VOLUNTARY status, if patient wishes to leave [facility], staff will contact [facility] Crisis Screener ([phone]) and Print Washer ([phone]) as soon as possible. In the event of elopement, notify [place] [employer] ([phone]). Patient is currently voluntarily at [facility] and seeking inpatient admission when a bed becomes available. [facility] Frontline Metallographer will continue seeking placement. Please contact the Print Washer ([phone]) and [facility] Metallographer ([phone]) for any needed changes in the Safety Plan. Safety plan has been provided to interdepartmental care team.
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
[2023-07-14 20:32] VITALS: BP 120/78; PULSE 58; RESP 18; TEMP 36.5; O2SAT 100
[2023-07-14] MEDS: lamoTRIgine 25 MG TAB 50 MG PO (20:39)
== END 2023-07-14 20:44 ==
PROVIDERS: Physician Assistant; Emergency Provider Student in an Organized Health Care Education/Training Program; PCP Student in an Organized Health Care Education/Training Program
DX: R45.851 Suicidal ideations (principal); F31.9 Bipolar disorder, unspecified; F19.10 Other psychoactive substance abuse, uncomplicated; F17.210 Nicotine dependence, cigarettes, uncomplicated
CPT/HCPCS: 00123; 80048; 80076; 80307; 83690; 87637; 96127; 99285; 80320; 80329; 81003; 84443; 85025